=== PATIENT | male | born 1940 | race Caucasian/White ===

== ENCOUNTER 2017-01-23 05:22 | Day surgery (SDC) | payer MEDICARE, OTHER ==
[2017-01-22 12:28] LABS: BASOPHILS 0.8 % (0-2); EOSINOPHILS 3.7 % (0-7); HEMATOCRIT 38.8 % (42.0-54.0); HEMOGLOBIN 12.7 g/dL (13.5-17.5); IMMATURE GRANULOCYTES 0.4 % (0-5); LYMPHOCYTES 16.6 % (15-50); MCH 29.3 pg (26.0-34.0); MCHC 32.7 g/dL (31.0-37.0); MCV 89.6 fL (80.0-100.0); MEAN PLATELET VOLUME 9.6 fL (7.4-10.4); MONOCYTES 17.2 % (2-11); NEUTROPHILS 61.3 % (40-80); PLATELET COUNT 260 10x3/uL (130-400); RBC 4.33 10x6/uL (4.20-6.10); WBC 5.2 10x3/uL (4.8-10.8)
[2017-01-22 12:41] LABS: ANION GAP 13.5 mmol/L (8-16); CALCIUM 9.3 mg/dL (8.5-10.1); CARBON DIOXIDE 28.2 mmol/L (21.0-32.0); CREATININE - SERUM 1.6 mg/dL (0.6-1.3); POTASSIUM - SERUM 4.7 mmol/L (3.5-5.1)
[~2017-01-23 05:22] MED LIST: ACTOS45 MG PO; BAYER CHEWABLE81 MG PO; COZAAR100 MG PO; FARXIGA10 MG PO; GLYXAMBI 10 MG1 EACH PO; LANTUS INSULIN10 ML SQ; NORVASC2.5 MG PO; PRILOSEC20 MG PO; ZOCOR40 MG PO
[2017-01-23] MEDS ORDERED: FLOMAX0.4 MG PO (08:14)
[2017-01-23] MEDS ORDERED: HYDROCODONE-APA1 TAB PO (11:17)
[2017-01-23] MEDS ORDERED: CYCLOBENZAPRINE10 MG PO (11:18)
== END 2017-01-24 16:32 | disposition home or self-care (01) ==
LOC: D.OPS 05:22 → D.MS 18:22
PROVIDERS: Surgery
DX: K42.9 Umbilical hernia without obstruction or gangrene (principal); K43.9 Ventral hernia without obstruction or gangrene; I10 Essential (primary) hypertension; E11.9 Type 2 diabetes mellitus without complications; E78.00 Pure hypercholesterolemia, unspecified

== ENCOUNTER 2017-02-05 20:51 | Emergency (ER) | payer MEDICARE, OTHER ==
[2017-01-24 01:48] VITALS: BMI 30.9
[~2017-02-05 20:51] MED LIST changes: +CYCLOBENZAPRINE10 MG PO; +FLOMAX0.4 MG PO; +HYDROCODONE-APA1 TAB PO
[2017-02-05 22:34] LABS: APPEARANCE CLEAR (CLEAR); BILIRUBIN NEGATIVE (NEGATIVE); COLOR YELLOW (YELLOW); GLUCOSE 1000 mg/dL (NEGATIVE); KETONE NEGATIVE (NEGATIVE); LEUKOCYTE ESTERASE 1+ (NEGATIVE); NITRITE POSITIVE (NEGATIVE); PROTEIN NEGATIVE (NEGATIVE); UROBILINOGEN NORMAL (NORMAL)
[2017-02-05 22:35] LABS: WHITE CELLS - URINE 25-50 /hpf (0-5)
[2017-02-05 22:36] LABS: BACTERIA MODERATE /hpf (NONE SEEN)
== END 2017-02-05 23:04 | disposition home or self-care (01) ==
LOC: D.ER 20:51
PROVIDERS: Family Medicine
DX: N39.0 Urinary tract infection, site not specified (principal); R30.0 Dysuria; I10 Essential (primary) hypertension; E11.9 Type 2 diabetes mellitus without complications

== ENCOUNTER → 2017-10-17 14:32 | Outpatient (CLI) | payer MEDICARE, OTHER ==
[2017-01-24 01:48] VITALS: BMI 30.9
== END | disposition home or self-care (01) ==
LOC: D.US 14:32
DX: R09.89 Other specified symptoms and signs involving the circulatory and respiratory systems (principal)

== ENCOUNTER → 2018-12-23 09:36 | Outpatient (CLI) | payer MEDICARE, OTHER ==
[2017-01-24 01:48] VITALS: BMI 30.9
[~2018-12-23 09:36] MED LIST changes: +CARDURA4 MG PO; +LASIX20 MG PO; +SOLIQUA 100 UNIT3 ML SQ
== END | disposition home or self-care (01) ==
LOC: D.HCCARDIO 09:36
PROVIDERS: ATTEND Internal Medicine Cardiovascular Disease
DX: I25.10 Atherosclerotic heart disease of native coronary artery without angina pectoris (principal)

== ENCOUNTER → 2018-12-29 11:39 | Outpatient (CLI) | payer MEDICARE, BC ==
[~2018-12-29] VITALS: Ht 175.3 cm; Wt 90.9 kg
--- NOTE | ~2018-12-29 | HEMODYNAMI ---
PATIENT:GEOVANNY ROSALES MEDICAL RECORD: [id number] : 44 LOCATION:[facility] ADMISSION DATE: 12/29/18 Generatedon:12/29/201816:16 Patient name: GEOVANNY ROSALES Patient #: [id number] SSN: : 1940 Date of study: 12/29/2018 Page: Of Hemodynamic Procedure Report Patient Data Patient Demographics Procedure consent was obtained First Name: GEOVANNY Gender: Male Last Name: BOBBY : 1940 Middle Initial: A Age: 78 year(s) Patient #: [id number] Race: Additional ID: [id number] Contact details Address: [address] [place] [address] State: [place] City: [place] Zip code: [address] Past Medical History Allergies: No known allergies Admission Admission Data Admission Date: 12/29/2018 Admission Time: 11:39 Height (in.): 70 BSA: 2.13 (m2) Height (cm.): 177.8 BMI: 30.13 (kg/m2) Weight (lbs.): 210 Weight (kg.): 95.25 Lab Results Lab Result Date: 12/29/2018 Lab Result Time: 0:00 Biochemistry Name Units Result Min Max BUN mg/dl 36 --(----)-* 7 18 Creatinine mg/dl 1.9 --(----)-* 0.6 1.3 CBC Name Units Result Min Max Hematocrit % 36.2 *-(----)-- 42 54 Hemoglobin g/dl 11.7 *-(----)-- 13.5 17.5 Procedure Procedure Types Cath Procedure Diagnostic Procedure LHC Coronaries only Aortic Root Angiography Sedation Charges Moderate Sedation up to 15 minutes Procedure Description Procedure Date Procedure Date: 12/29/2018 Procedure Start Time: 15:58 Procedure End Time: 16:14 Procedure Staff Name Function Kamran Wells MD Performing Physician Sangeeta Zimmerman RT Monitor Adam Butt RT Scrthor Valladares RN Nurse Procedure Data Cath Procedure Fluoroscopy Diagnostic fluoroscopy Total fluoroscopy Time: 2 time: 2 min min Diagnostic fluoroscopy Total fluoroscopy dose: 715 dose: 715 mGy mGy Contrast Material Contrast Material Type Amount (ml) Isovue 300 87 Entry Location Entry Primary Successful Side Size Upsize Upsize Entry Closure Succes sful Closure Location (Fr) 1 (Fr) 2 (Fr) Remarks Device Remarks Femoral Right 5 Fr Exoseal artery Estimated blood loss: 10 ml Diagnostic catheters Device Type Used For End Catheter Placement MULTIPACK JL 4.0 5Fr Procedure catheter MULTIPACK 3DRC 5Fr Procedure catheter MULTIPACK Pigtail 5 Fr Procedure catheter Procedure Complications No complications Procedure Medications Medication Administration Route Dosage Oxygen etCO2 Nasal cannula 2 l/min Lidocaine 2% added to field 20 Heparin Flush Bag added to field 2 bags (1000units/500ml NS) 0.9% NaCl I.V. 100 ml/hr Versed I.V. 2 mg Fentanyl I.V. 100 mcg Versed I.V. 1 mg Fentanyl I.V. 50 mcg Versed I.V. 1 mg Fentanyl I.V. 50 mcg Hemodynamics Rest BSA: 2.13 (m2) HGB: 11.7 (g/dl) O2 Consumption: Estimated: 248.85 (ml/min) O2 Co nsumption indexed: Estimated:116.83 (ml/min/m) Heart Rate: 75 (bpm) Snapshots Pre Cath Intra NCS Post Cath Vital Signs Time Heart Resp SPO2 etCO2 NIBP Rhythm Pain Sedation Rate (ipm) (%) (mmHg) (mmHg) Status Level (bpm) 15:44:29 75 14 98 36.9 116/60(98) NSR 0 (11) 10(A) , No pain 15:48:42 68 16 95 33.1 104/54(75) NSR 0 (11) 10(A) , No pain 15:52:50 68 10 98 21.8 107/57(81) NSR 0 (11) 10(A) , No pain 15:57:00 70 20 98 33.9 84/57(74) NSR 0 (11) 9(A) , No pain 16:01:00 69 12 98 27.1 100/58(70) NSR 0 (11) 9(A) , No pain 16:05:05 74 12 98 35.4 101/59(78) NSR 0 (11) 9(A) , No pain 16:09:11 73 10 98 39.8 99/60(79) NSR 0 (11) 10(A) , No pain 16:13:19 72 13 95 0 91/53(65) NSR 0 (11) 10(A) , No pain Medications Time Medication Route Dose Verified Delivered Reason Notes Eff ectiveness by by 15:42:58 Oxygen etCO2 2 Kamran Buffie used for Nasal l/min Russell Valladares RN procedure cannula 15:43:06 Lidocaine 2% added 20ml Kamran Kamran for local to vial Russell Wells MD anesthetic field 15:43:12 Heparin Flush added 2 Kamran Kamran used for Bag to bags Russell Wells MD procedure (1000units/500ml field NS) 15:43:21 0.9% NaCl I.V. 100 Kamran Buffie Per ml/hr Russell Valladares RN physician 15:54:49 Versed I.V. 2 mg Kamran Buffie for Russell Valladares RN sedation 15:54:55 Fentanyl I.V. 100 Kamran Buffie for mcg Russell Valladares RN sedation 16:00:29 Versed I.V. 1 mg Kamran Buffie for Russell Valladares RN sedation 16:00:33 Fentanyl I.V. 50 Kamran Buffie for mcg Russell Valladares RN sedation 16:09:53 Versed I.V. 1 mg Kamran Buffie for Russell Valladares RN sedation 16:09:57 Fentanyl I.V. 50 Kamran Buffie for mcg Russell Valladares RN sedation Procedure Log Time Note 15:22:20 Signed procedure consent form obtained from patient. 15:22:21 Diagnostic Cath status Elective 15:22:23 Time tracking: Regular hours (M-F 7:00 - 5:00) 15:22:28 Plan of Care:Hemodynamics will remain stable., Cardiac rhythm will remain stable., Comfort level will be maintained., Respiratory function will remain adequate., Patient/ family verbilizes understanding of procedure., Procedure tolerated without complication., Recovers from procedure without complications.. 15:23:25 H&P Date Dictated: 12/17/2018 Within 30 days and on chart., H&P Addendum completed by physician on day of procedure. (MUST COMPLETE FOR ALL OUTPATIENTS). 15:23:32 Patient allergic to No known allergies 15:25:47 Patient Height : 70 inches 15:26:02 Patient Weight : 210 lbs 15:26:43 Adam Filomena RT(R) sent for patient. Start room use. 15:32:52 Patient received from Pre/Post Procedure Room to CCL 2 Alert and oriented. Tansferred to table in Supine position. 15:32:53 Warm blankets applied, and ariana hugger turned on for patient comfort. 15:32:54 Correct patient and procedure confirmed by team. 15:32:54 ECG and BP/O2 sat monitors applied to patient. 15:42:58 Oxygen 2 l/min etCO2 Nasal cannula was administered by Gilmar Valladares RN; used for procedure; 15:43:06 Lidocaine 2% 20ml vial added to field was administered by Kamran Wells MD; for local anesthetic; 15:43:12 Heparin Flush Bag (1000units/500ml NS) 2 bags added to field was administered by Kamran Wells MD; used for procedure; 15:43:21 0.9% NaCl 100 ml/hr I.V. was administered by Gilmar Valladares RN; Per physician; 15:43:24 Vital chart was started 15:44:29 Baseline sample Acquired. 15:44:32 Rhythm: sinus rhythm 15:44:33 Full Disclosure recording started 15:44:35 Pre-procedure instructions explained to patient. 15:44:35 Pre-op teaching completed and patient verbalized understanding. 15:44:36 Family in waiting room. 15:44:39 Patient NPO since Midnight. 15:44:41 Is patient on blood thinner?No 15:44:42 Patient diabetic? Yes. 15:44:43 If diabetic: On Metformin? No 15:44:46 Previous problem with sedation/anesthesia? No ? 15:44:47 Snore? No 15:44:48 Sleep apnea? No 15:44:48 Deviated septum? No 15:44:49 Opens mouth fully? No 15:44:50 Sticks out tongue? Yes 15:44:53 Dentures? No ? 15:44:55 Airway obstruction? No ? 15:44:59 Pre procedure: right dorsailis pedis pulse 2+ Normal; easily identifiable; not easily obliterated 15:45:04 Patient pain scale 0/10 ?. 15:45:08 IV patent on arrival in left wrist with 0.9% NaCl at [facility]. 15:47:14 Lab Result : BUN 36 mg/dl 15:47:14 Lab Result : Creatinine 1.9 mg/dl 15:47:14 Lab Result : Hemoglobin 11.7 g/dl 15:47:14 Lab Result : Hematocrit 36.2 % 15:47:17 Lab results completed and on chart. 15:47:20 Right groin area was prepped with chlora-prep and draped in sterile fashion 15:47:21 Alarms reviewed by R. N. 15:47:21 Sharps counted by scrub and verified by R.N. 15:47:24 Use device set Femoral Dx 15:47:25 ACIST Syringe (06606) opened to sterile field. 15:47:25 Bag Decanter (2002S) opened to sterile field. 15:47:26 ACIST Hand Control (08586) opened to sterile field. 15:47:27 ACIST Manifold (44294) opened to sterile field. 15:47:27 Tegaderm 4 x 4 (1626W) opened to sterile field. 15:47:28 Medline Cath Pack ([id number]) opened to sterile field. 15:47:28 DIAGNOSTIC WIRE .035 260cm J wire (151893) opened to sterile field. 15:47:29 DIAGNOSTIC Multipack 5Fr catheter set ([id number]) opened to sterile field. 15:47:30 SHEATH 5FR Fieldale (TCU511) opened to sterile field. 15:50:02 NO RADIAL DUE TO MULTIPLE WRIST SURGERIES 15:51:19 Zero performed for pressure channel P1 15:53:23 --------ALL STOP TIME OUT------ 15:53:23 Final Timeout: patient, procedure, and site verified with staff and physician. All members of the team are in agreement. 15:53:24 Right groin site verified by team. 15:53:29 Maximum allowable Isovue 300 dose 239ml. Physician notified. (300ml for normal creatinines. For patients with creatinine of 1.7 or higher multiply weight(kg) x 5 divided by creatinine.) 15:53:33 Fire Safety Assessment: A--An alcohol-based skin anteseptic being used preoperatively., C--Open oxygen or nitrous oxide is being used., D--An ESU, laser, or fiber-optic light is being used. 15:53:36 Physical assessment completed. ASA score P 2 - A patient with mild systemic disease as per Kamran Wells MD. 15:53:38 Sedation plan: IV Moderate Sedation Medication:Versed, Fentanyl 15:54:49 Versed 2 mg I.V. was administered by Gilmar Valladares RN; for sedation; 15:54:55 Fentanyl 100 mcg I.V. was administered by Gilmar Valladares RN; for sedation; 15:56:39 Procedure started. 15:58:07 Local anesthetic to right femoral artery with Lidocaine 2% by Kamran Wells MD.INITIAL ACCESS ONLY 15:59:03 A 5 Fr sheath was inserted into the Right Femoral artery 15:59:14 A MULTIPACK JL 4.0 5Fr catheter was advanced over the wire and used for Procedure. 16:00:29 Versed 1 mg I.V. was administered by Gilmar Valladares RN; for sedation; 16:00:33 Fentanyl 50 mcg I.V. was administered by Gilmar Valladares RN; for sedation; 16:03:14 LCA angiography performed. 16:03:49 Catheter exchanged over wire. 16:04:30 A MULTIPACK 3DRC 5Fr catheter was advanced over the wire and used for Procedure. 16:06:07 RCA angiography performed. 16:06:09 Catheter exchanged over wire. 16:09:07 Procedure type changed to Cath procedure, Diagnostic procedure, LHC, Coronaries only, Aortic Root Angiography, Sedation Charges, Moderate Sedation up to 15 minutes 16:09:15 A MULTIPACK Pigtail 5 Fr catheter was advanced over the wire and used for Procedure. 16:09:43 Aortic Root visualized 16:09:53 Versed 1 mg I.V. was administered by Gilmar Valladares RN; for sedation; 16:09:57 Fentanyl 50 mcg I.V. was administered by Gilmar Valladares RN; for sedation; 16:10:17 Catheter removed. 16:10:19 EXOSEAL 5Fr (EX500) opened to sterile field. 16:11:06 Sheath removed intact; hemostasis achieved with Exoseal to the Right Femoral artery. 16:11:36 Procedure ended.(Physican Out) 16:11:59 Fluoroscopy time 02.00 minutes. 16:12:04 Flurop Dose total: 715 16:12:04 Fluoroscopy dose: 715 mGy 16:12:09 Contrast amount:Isovue 300 87ml. 16:12:10 Sharps counted by scrub and verified by R.N. 16:12:13 Post-op/insertion site Right Femoral artery dressed using a 4 x 4 and Tegaderm. 16:12:16 Post-procedure physical assessment completed. ASA score P 2 - A patient with mild systemic disease as per Kamran Wells MD. 16:12:20 Post procedure rhythm: sinus rhythm 16:12:22 Estimated blood loss: 10 ml 16:12:24 Post procedure instruction explained to patient.Patient verbalizes understanding. 16:12:24 Patient needs reinforcement of post procedure teaching. 16:14:02 Procedure and supply charges have been captured, reviewed, submitted and are correct. 16:14:04 Procedure Complication : No complications 16:14:06 Vital chart was stopped 16:14:08 See physician's report for complete and final results. 16:14:10 Report given to Pre/Post Procedure Room. 16:14:13 Patient transfered to Pre/Post Procedure Room with Bed. 16:14:14 Procedure ended. 16:14:14 Full Disclosure recording stopped 16:14:19 End room use (Document Last) Device Usage Item Name Manufacture Quantity Catalog Hospital Part Current Minimal L ot# / Number Charge Number Stock Stock Serial# Code ACIST Acist 1 69577 628926 445616 810402 20 Syringe Medical (79918) Systems Inc Bag Microtek 1 035954 97369 195617 5 Decanter Medical Inc. () ACIST Hand Acist 1 01786 571889 738476 790783 5 Control Medical (60052) Systems Inc ACIST Acist 1 63184 011955 003076 885118 5 Manifold Medical (90229) Systems Inc Tegaderm 4 3M 1 1626W 715950 746034 751766 5 x 4 (1626W) Medline Medline 1 [id number] 049624 34218 469279 5 Cath Pack ([id number]) DIAGNOSTIC St Omar 1 951648 664531 048605 944517 30 WIRE .035 260cm J wire (983893) DIAGNOSTIC Cardinal 1 UE2750 900060 52112 019595 30 [employer] 5Fr catheter set (JQ5390) SHEATH 5FR Terumo 1 MNE896 054364 294883 382472 5 Fieldale (VOI410) MULTIPACK Cardinal 1 782769 5 JL 4.0 5Fr Health catheter MULTIPACK Cardinal 1 032959 5 3DRC 5Fr Health catheter MULTIPACK Cardinal 1 313328 5 Pigtail 5 Health Fr catheter EXOSEAL 5Fr Cardinal 1 EX500 803294 184575 130545 10 (EX500) Health Signature Audit [place] Stage Time Signature Unsigned Intra-Procedure 12/29/2018 Sangeeta Zimmerman 4:16:09 PM RT(R) Signatures Monitor : Sangeeta Zimmerman Signature : RT Date : Time : [address] [place] [address]
[2018-12-29 12:11] VITALS: BP 141/65; Ht 175.3 cm; Wt 90.9 kg
[2018-12-29 12:20] LABS: BASOPHILS 0.6 % (0-2); EOSINOPHILS 4.2 % (0-7); HEMATOCRIT 36.2 % (42.0-54.0); HEMOGLOBIN 11.7 g/dL (13.5-17.5); IMMATURE GRANULOCYTES 0.2 % (0-5); LYMPHOCYTES 22.1 % (15-50); MCH 30.8 pg (26.0-34.0); MCHC 32.3 g/dL (31.0-37.0); MCV 95.3 fL (80.0-100.0); MEAN PLATELET VOLUME 10.2 fL (7.4-10.4); MONOCYTES 13.3 % (2-11); NEUTROPHILS 59.6 % (40-80); RDW 13.9 % (11.5-14.5); WBC 5.4 10x3/uL (4.8-10.8)
[2018-12-29 12:23] LABS: PLATELET COUNT 199 10x3/uL (130-400)
[2018-12-29 12:27] LABS: ANION GAP 12.9 mmol/L (8-16); CALCIUM 8.6 mg/dL (8.5-10.1); CARBON DIOXIDE 27.5 mmol/L (21.0-32.0); CREATININE - SERUM 1.9 mg/dL (0.6-1.3); POTASSIUM - SERUM 4.4 mmol/L (3.5-5.1)
--- NOTE | 2018-12-29 16:33 | NUR ---
RECIEVED TO ROOM VIA STRETCHER FROM CORE MEASURES ABSTRACTOR WITH 5 FR EXOSEAL R/GROIN CDI NO BLEEDING OR HEMATOMA NOTED. PATIENT CONNECTED TO MONITOR FOR OBSERVATION WITH HR 73 BP 108/56 INSTRUCTED PATIENT TO KEEP HEAD FLAT ON PILLOW WITH RLE STRAIGHT
--- NOTE | 2018-12-29 16:45 | NUR ---
RESTING QUIETLY NO DISTRESS NOTED. 5 FR EXOSEAL R/GROIN IS CDI
--- NOTE | 2018-12-29 17:04 | NUR ---
TOLERATING SANDWICH AND SODA WITH NAUSEA DENIED. VSS AND R/GROIN IS CDI
--- NOTE | 2018-12-29 17:28 | NUR ---
5 FR EXOSEAL R/GROIN IS CDI WITH PAIN DENIED. HR 75 BP 126/65
--- NOTE | 2018-12-29 17:53 | NUR ---
5 FR EXOSEAL R/GROIN IS CDI WITH CHEST PAIN DENIED VSS. REPOSITIONED TO SITTING WITH HOB UP 30 FOR COMFORT. VERBAL AND WRITTEN DISCHARGE GONE OVER WITH PATIENT AND
--- NOTE | 2018-12-29 18:27 | NUR ---
PIV REMOVED WITH DRESSING APPLIED. PATIENT UP TO GET DRESSED FOR DISCHARGE HOME 5 FR EXOSEAL R/GROIN IS CDI AND CHEST PAIN IS DENIED. PATIENT LEFT VIA WC TO PARKING FOR TRANSPORT HOME NO DISTRESS
== END | disposition home or self-care (01) ==
LOC: D.CATH 11:39
PROVIDERS: ATTEND Internal Medicine Cardiovascular Disease
DX: I70.0 Atherosclerosis of aorta (principal); I25.119 Atherosclerotic heart disease of native coronary artery with unspecified angina pectoris; T82.855A Stenosis of coronary artery stent, initial encounter; I35.0 Nonrheumatic aortic (valve) stenosis; Z01.812 Encounter for preprocedural laboratory examination

== ENCOUNTER 2019-01-21 07:43 | Inpatient (IN) | payer MEDICARE, BC ==
[~2019-01-21] VITALS: Ht 175.3 cm; Wt 100.0 kg
[2019-01-21] MEDS ORDERED: CENTRUM MEN'S1 EACH PO (08:15)
[2019-01-21] MEDS ORDERED: EZFE 200200 MG PO (08:16)
[2019-01-21 10:49] LABS: BASOPHILS 0.2 % (0-2); EOSINOPHILS 4.8 % (0-7); HEMATOCRIT 35.1 % (42.0-54.0); HEMOGLOBIN 11.5 g/dL (13.5-17.5); IMMATURE GRANULOCYTES 0.2 % (0-5); LYMPHOCYTES 18.4 % (15-50); MCH 30.9 pg (26.0-34.0); MCHC 32.8 g/dL (31.0-37.0); MCV 94.4 fL (80.0-100.0); MEAN PLATELET VOLUME 9.6 fL (7.4-10.4); MONOCYTES 15.5 % (2-11); NEUTROPHILS 60.9 % (40-80); PLATELET COUNT 177 10x3/uL (130-400); RBC 3.72 10x6/uL (4.20-6.10); RDW 14.1 % (11.5-14.5); WBC 4.8 10x3/uL (4.8-10.8)
[2019-01-21 11:02] LABS: APTT 28.8 SECONDS (22.8-39.4); INR 1.03 (0.85-1.17)
[2019-01-21 11:09] LABS: APPEARANCE CLEAR (CLEAR); BACTERIA FEW /hpf (NONE SEEN); BILIRUBIN NEGATIVE (NEGATIVE); COLOR YELLOW (YELLOW); EPITHELIAL CELLS OCC /hpf (0-5); GLUCOSE NEGATIVE (NEGATIVE); KETONE NEGATIVE (NEGATIVE); NITRITE NEGATIVE (NEGATIVE); PROTEIN NEGATIVE (NEGATIVE); RED CELLS - URINE 0-5 /hpf (0-5); UROBILINOGEN NORMAL (NORMAL)
[2019-01-21 11:10] LABS: MUCUS <1+ /lpf (NONE SEEN)
[2019-01-21 11:15] LABS: ALBUMIN 3.6 g/dL (3.4-5.0); ANION GAP 11.6 mmol/L (8-16); BILIRUBIN - TOTAL 0.38 mg/dL (0.2-1.3); CALCIUM 8.8 mg/dL (8.5-10.1); CARBON DIOXIDE 28.6 mmol/L (21.0-32.0); CREATININE - SERUM 1.9 mg/dL (0.6-1.3); PHOSPHOROUS 3.2 mg/dL (2.5-4.9); POTASSIUM - SERUM 4.2 mmol/L (3.5-5.1); PROTEIN - SERUM 7.4 g/dL (6.4-8.2); T4 THYROXIN - FREE 1.1 ng/dL (0.76-1.46); THYROID STIMULATING HORMONE 2.16 uIU/mL (0.36-3.74)
[2019-01-27] VITALS (38 sets, daily range): BP systolic 71–141; BP diastolic 34–93; BMI 31.6
--- NOTE | 2019-01-27 15:00 | NUR ---
ARRIVED TO UNIT AT 1435 VIA BED. ON VENT A/C TV 550, R 14, FIO2 100%, PEEP 5. 8.0 ETT, 25 AT THE LIP. SEDATED. WRIST RESTRAINTS APPLIED ON ARRIVAL PER ORDERS. CONNECTED TO ICU MONITOR. R-IJ WITH AMIO AT 33.3ML/HR, DIANA AT 0.9MCG/KG/MIN, PLASMOLYTE AT 100ML/HR. MIDSTERNAL INCISION DRESSING CDI. SUBSTERNAL INCISION WITH 3 CT, 1 DUY DRAIN. HUBBARD IN PLACE. R-LEG HARVEST WRAPPED IN COBAN FROM GROIN TO ANKLE. L-RADIAL BRANDON IN PLACE. PEDAL PULSES PALPABLE. SWAN MORE SECURED IN PLACE. WILL CONTINUE TO MONITOR.
--- NOTE | 2019-01-27 15:30 | NUR ---
200ML FLUID BOLUS GIVEN SD DR. ROGERS'S ORDERS.
--- NOTE | 2019-01-27 15:43 | NUR ---
1 UNIT OF PRBC'S INITIATED AT THIS TIME PER DR ROGERS.
[2019-01-27 16:18] LABS: INR 1.45 (0.85-1.17); PROTIME 17.1 SECONDS (11.6-15.0)
[2019-01-27 16:21] LABS: BASOPHILS 0.2 % (0-2); EOSINOPHILS 0.7 % (0-7); HEMATOCRIT 27.6 % (42.0-54.0); HEMOGLOBIN 9.1 g/dL (13.5-17.5); IMMATURE GRANULOCYTES 0.4 % (0-5); LYMPHOCYTES 6.5 % (15-50); MCH 30.7 pg (26.0-34.0); MCV 93.2 fL (80.0-100.0); MEAN PLATELET VOLUME 10.1 fL (7.4-10.4); MONOCYTES 11.8 % (2-11); NEUTROPHILS 80.4 % (40-80); RBC 2.96 10x6/uL (4.20-6.10); WBC 10.9 10x3/uL (4.8-10.8)
[2019-01-27 16:22] LABS: PLATELET COUNT 105 10x3/uL (130-400)
--- NOTE | 2019-01-27 16:40 | NUR ---
UNIT OF PRBC'S FINISHED INFUSING.
--- NOTE | 2019-01-27 17:06 | NUR ---
1 AMP OF BICARB GIVEN PER ODERS.
--- NOTE | 2019-01-27 18:00 | NUR ---
DIANA DECREASED TO 0.9MCG/KG/MIN PER ORDERS.
--- NOTE | 2019-01-27 18:30 | NUR ---
AMIODARONE DECREASED TO 0.5MG/MIN PER ORDERS.
--- NOTE | 2019-01-27 19:15 | NUR ---
REPORTR RECIEVED . CARE ASSUMED. PT IS AWAKE AND FOLLOWING COMMANDS. VENT PER ETT. NO SEDATION. R IJ CORDIS WITH SWAN MORE. NEOSYNEPHRINE BEING TITRATED TO MAINTAIN SBP 90-140. SEE FLOWSHEET FOR INFUSIONS. NSR ON CM. ASSESSMENT COMPLETED. PT IS COOL TO TOUCH. WARM BLANKET APPLIED.
--- NOTE | 2019-01-27 19:30 | NUR ---
DR ROGERS CALLED AND UPDATED ON PT CONDITION AND ABG RESULTS. NEW ORDERS RECIEVED FOR AN AMP OF BICARB IV NOW, 100 ML NS BOLUS AND CALL HIM RESULTS OF REPEAT ABG IN 30 MINUTES.
--- NOTE | 2019-01-27 20:05 | NUR ---
DR ROGERS CAYED WITH RESULTS OF ABG. ORDER RECIEVED TO GIVE AN AMP OF BICARB AND CALL RESULTS OF REPEAT ABG IN 30 MINUTES.
--- NOTE | 2019-01-27 20:35 | NUR ---
DR ROGERS CALLED WITH RESULT OF ABG. ORDER RECIEVED TO EXTUBATE NOW AND LEAVE SWAN IN UNTIL AM. RESPIRATORY THERAPIST NOTIFIED.
--- NOTE | 2019-01-27 20:40 | NUR ---
EXTUBATED BY RT JAYY. PT IS COUGHING WHEN ASKED AND FOLLOWING COMMANDS. VSS.
--- NOTE | 2019-01-27 22:00 | NUR ---
PT CONTINUING TO BECOME MORE ALERT. O2 NC 5L. CONTINUING TO TITRATE DIANA.
[2019-01-28] VITALS (96 sets, daily range): BP systolic 90–145; BP diastolic 28–62; Ht 175.3 cm; Wt 100.0 kg
--- NOTE | 2019-01-28 | NUR ---
TOLERATING ICE CHIPS AND SIPS OF WATER. NO DIFFICULTY SWALLOWING. GIVING PM ORAL MEDS. CONTINUES TO COUGH AND DEEP BREATH ON REQUEST. EDUCATED ON USING HEART PILLOW TO HELP EASE THE DISCOMFORT WHEN MOVING AND DEEP BREATHING.
--- NOTE | 2019-01-28 03:30 | NUR ---
NO CHANEGS IN ASSSESSMENT.
[2019-01-28 06:05] LABS: HEMOGLOBIN 9.5 g/dL (13.5-17.5); MCH 30.4 pg (26.0-34.0); MCHC 32.8 g/dL (31.0-37.0); MCV 92.9 fL (80.0-100.0); MEAN PLATELET VOLUME 10.3 fL (7.4-10.4); RBC 3.12 10x6/uL (4.20-6.10); RDW 14.8 % (11.5-14.5); WBC 11.1 10x3/uL (4.8-10.8)
[2019-01-28 06:30] LABS: INR 1.09 (0.85-1.17); PROTIME 13.6 SECONDS (11.6-15.0)
[2019-01-28 06:31] LABS: ALBUMIN 2.4 g/dL (3.4-5.0); ANION GAP 12.7 mmol/L (8-16); BILIRUBIN - TOTAL 0.23 mg/dL (0.2-1.3); CALCIUM 7.3 mg/dL (8.5-10.1); CARBON DIOXIDE 27.1 mmol/L (21.0-32.0); CREATININE - SERUM 2.2 mg/dL (0.6-1.3); MAGNESIUM - SERUM 2.5 mg/dL (1.8-2.4); POTASSIUM - SERUM 4.8 mmol/L (3.5-5.1); PROTEIN - SERUM 4.9 g/dL (6.4-8.2)
--- NOTE | 2019-01-28 07:00 | NUR ---
SHIFT REPORT RECEIVED. AA&O. RATES PAIN 5/10 AT INCISION SITE. ON 3L O2 VIA NC. ON CLEAR LIQUIDS. RIJ WITH PLASMOLYTE AT 100ML/HR, DIANA AT 0.7MCG/KG/MIN, AMIODARONE AT 16.7ML/HR, AND ZINACEF AT 11.4ML/HR. LEFT RADIAL BRANDON SECURED. MIDSTERNAL DRESSING CDI. CHEST TUBES X 3 TO 20CM H2O SUCTION WITH NO AIR LEAK NOTED. L-DUY DRAIN IN PLACE WITH BLOODY DRAINAGE NOTED. R-LEG HARVEST SITES WRAPPED IN COBAN DRESSING FROM GROIN TO ANKLE. TEDS AND SCD IN PLACE ON LEFT LEG. SHIFT ASSESSMENT COMPLETED. CALL LIGHT IN REACH. SIDE RAILS UP X 2. BED LOW POSITION. WILL CONTINUE TO MONITOR.
--- NOTE | 2019-01-28 07:32 | OP ---
PATIENT NAME: GEOVANNY ROSALES MEDICAL RECORD: [id number] :42 LOCATION:[facility] ADMISSION DATE:01/27/19 SURGEON: VICK ROGERS MD DATE OF OPERATION: 01/27/2019 SURGEON: Vick Rogers MD HANDBAG STITCHER: Perfecto Travis OPERATIONS PERFORMED: 1. Aortic valve replacement (23-mm pericardial valve). 2. Coronary artery bypass graft times 3 (left internal mammary to LAD, reverse saphenous vein graft from aorta to inferior branch of first diagonal, aorta to acute marginal). 3. Endoscopic saphenous vein harvest. PREOPERATIVE DIAGNOSES: Aortic stenosis, coronary artery disease. POSTOPERATIVE DIAGNOSES: Aortic stenosis, coronary artery disease. ANESTHESIA: General endotracheal anesthesia. ESTIMATED BLOOD LOSS: Total cardiopulmonary bypass with Cell Saver retransfusion. COMPLICATIONS: None. SPECIMENS: Aortic valve leaflets. CONDITION: Stable. DISPOSITION: CV ICU. OPERATIVE FINDINGS: 1. Transesophageal echocardiography was not used due to previous history of dysphagia and apparent previous history of esophageal erosions. The patient also reported a history of hiatal hernia. 2. Relatively large-caliber greater saphenous vein. The portion from the upper thigh was not used. 3. Good quality left internal mammary artery. The LAD was 2.0 mm with severe disease. 4. The bifurcating diagonal inferior branch was 1.5 mm with severe disease. There were no distal obtuse marginal targets of any significant size seen. 5. The right coronary was calcified throughout and the acute marginal crossed the inferior wall of the right ventricle to the distal septum and it was a 1.5 mm vessel. 6. The aortic valve was calcified including the leaflets and the annulus, but the valve seated well with no evidence of perivalvular leak. 7. Normal-appearing heart with good contractility. OPERATIVE INDICATIONS: Aortic stenosis and coronary artery disease. OPERATIVE SUMMARY IN DETAIL: The patient was brought to the operating suite. General anesthesia was obtained. The patient was prepped and draped. The greater saphenous vein was harvested endoscopically from the right lower OPERATIVE REPORT [id number] GEOVANNY ROSALES extremity. Side branches were divided with electrocautery. The vessel ligated was proximally and distally, and removed. Side branches were clipped. Some side branches were tied. Later, the leg was irrigated, closed in 2 layers, and wrapped with an elastic wrap. Median sternotomy incision was made. Subcutaneous tissue was divided with electrocautery. Sternum was divided with a saw. Left hemisternum was elevated. Left pleural cavity was entered. Left internal mammary vein was taken down as a pedicle graft. Sternal retractor was placed. Pericardium was opened. Heparin was given. Aorta was cannulated. Dual-stage venous cannula was inserted. The internal mammary was clipped distally and made ready for anastomosis. The patient was placed on cardiopulmonary bypass after activated clotting time was appropriately elevated. Retrograde cardioplegia cannula was inserted. The sites for distal anastomoses were selected. The left ventricular vent was inserted through the right superior pulmonary vein. Antegrade cardioplegia cannula was inserted. The patient was cooled. Cross-clamp was placed. Cardioplegia was given antegrade and retrograde and this was repeated at 15- to 20-minute intervals during the cross-clamp time. Distal anastomoses were performed in standard technique. The transverse aortotomy was performed. Direct cardioplegia was given into the left and the right had significant ostial calcification, too small for even a 4-mm ostial cannula. The leaflets were removed and the calcified plaque was debrided from the annulus. Thorough irrigation was undertaken. The valve sized to 23 mm. Pledgeted valve sutures were placed from ventricular to aortic side and then placed through the sewing ring. The valve was carefully lowered in place, sutured individually, and tied. I inspected the valve and it revealed no subvalvular obstruction and no evidence of leak at the annulus. The aortotomy was closed. Two proximal anastomoses were performed. The patient was in steep Trendelenburg position with de-airing of the left ventricular apex. Then, cross-clamp was removed. Aortic root was de-aired. Proximal anastomoses were tied down. Grafts were de-aired. Flow was restored. Proximal and distal anastomotic sites were inspected for bleeding. The patient was in a spontaneous sinus rhythm, fully rewarmed, and weaned from cardiopulmonary bypass after removing the left ventricular vent and the retrograde cardioplegia line. With the patient stable, he was decannulated. The aortic cannulation site was oversewn with a pledgeted suture. Thorough irrigation was undertaken and grafts lay appropriately. Protamine was given. Drains were placed in the mediastinum and both pleural cavities. Atrial and ventricular pacing wires were placed. Pericardial fat was loosely reapproximated. Left chest was evacuated and irrigated. Internal mammary harvest site was inspected for bleeding. Sternum was closed. Fascia was closed. Subcutaneous tissue was closed. Skin was closed. Dermabond was placed. The needle and sponge counts were reported as correct and the patient was taken to the ICU in stable condition. TRANSINT:[id number] Voice Confirmation ID: [id number] DOCUMENT ID: [id number] OPERATIVE REPORT [id number] GEOVANNY ROSALES, VICK Izaguirre MD at 0732 CC: JACKY BRAGG M.D. and RACHEL RAMIREZ [phone] DICTATION DATE: 01/27/19 1505 [employer] ASSEMBLER: 01/27/192000 ADM IN [address] [place] [address]
--- NOTE | 2019-01-28 07:35 | NUR ---
SHUKRI AGUERO PULLED PER DR. ROGERS. PT TOLERATED WELL.
--- NOTE | 2019-01-28 07:40 | NUR ---
DIANA DECREASED TO 0.6MCG/KG/MIN (17.5ML/HR). PT PULLS BETWEEN 500-750 ON I.S. COUGH IS WEAK. WILL CONTINUE TO WORK ON I.S. AND COUGH/DEEP BREATHING.
--- NOTE | 2019-01-28 08:39 | NUR ---
PO MEDS GIVEN WITH ICE WATER. NO SWOLLOWING DIFFICULTY NOTED. AMIODARONE OFF PER ORDERS. SIGNIFICANT OTHER AT BEDSIDE. NO FURTHER NEEDS AT THIS TIME. WILL CONTINUE TO MONITOR.
--- NOTE | 2019-01-28 09:30 | NUR ---
RATES PAIN 8/10 INCISIONAL. MORPHINE 2MG IV GIVEN PER ORDERS. DIANA DECREASED TO 0.5MCG/KG/MIN. WILL CONTINUE TO MONITOR AND DECREASE DIANA TOLERATED.
--- NOTE | 2019-01-28 10:42 | NUR ---
DANGLED ON SIDE OF FOR 10 MINUTES. TOLERATED WELL. DIANA DECREASED TO 0.4MCG/KG/MIN. PERCOCET 10 GIVEN AT THIS TIME FOR PAIN PER ORDERS. WILL CONTINUE TO MONITOR.
--- NOTE | 2019-01-28 11:56 | NUR ---
BP DROPPED INTO 80S. DIANA INCREASED PER PROTOCOL. CURRENTLY AT 0.9MCG/KG/MIN.
--- NOTE | 2019-01-28 14:27 | NUR ---
1200 ASSUMED PT CARE, PT DENIES PAIN AND ALL NEEDS, R IJ CVL WITH PLASMALYTE, DIANA AND ZINACEF INFUSING, L RADIAL A LINE, MIDSTERNAL AND SUBSTERNAL DRESSINGS WITH CT X3 2 Y'D TOGETHER, L SUBSTERNAL DUY DRAIN, TPM WIRES COILED, CRITICORE DRAINING YELLOW URINE, RLE COBAN DRESSING CDI, APPROX 1400 MORPHINE GIVEN BEFORE CTS REMOVED BY DR ROGERS, PT TOLERATED WELL, PER DR ROGERS REMOVE BRANDON WHEN DIANA WEANED TO 0.3 MCG.
--- NOTE | 2019-01-28 15:08 | NUR ---
A LINE AND LAC PIV DCD PER PROTOCOL TIPS INTACT NO SIGNS OF BLEEDING, RLE COBAN REMOVED, SCDS AND TEDS APPLIED WITH GAUZE OVER GLUE SITES TO PREVENT RUBBING OF TEDS
[2019-01-28 15:51] LABS: CHOL - HDL RATIO 1.8 ratio (2.3-4.9); LDL-HDL RATIO 0.7 ratio (1.5-3.5)
--- NOTE | 2019-01-28 16:17 | NUR ---
BED BATH AND LINEN CHANGE, DANGLED ON SIDE OF BED
--- NOTE | 2019-01-28 17:25 | MORECARE ---
CASE MANAGEMENT DISCHARGE SUMMARY PATIENT: GEOVANNY ROSALES UNIT: [id number] ADM DATE: 01/27/19 AGE: 78 : 44 SEX: M ROOM/BED: D[facility] AUTHOR: SHAE,DOC PHYSICIAN: REFERRING PHYSICIAN: ROSMERY ROGERS MD DATE OF SERVICE: 01/28/19 Discharge Plan Patient Name: GEOVANNY ROSALES Facility: [facility]:[place] : 1940 Planned Disposition: Home Anticipated Discharge Date: Discharge Date: Expected LOS: Initial Reviewer: [email or web address] Initial Review Date: 01/27/2019 Generated: 01/28/19 6:25 pm Comments DCP- Discharge Planning Updated by [email or web address]: Laney Banuelos on 01/28/19 4:[address] Patient Name: GEOVANNY ROSALES Admission Status: Urgent Accout number: [id number] Admission Date: 01-27-2019 : 1940 Admission Diagnosis: Attending: ROSMERY ROGERS Current LOS: 1 Anticipated DC Date: Planned Disposition: Home Primary Insurance: MEDICARE A & B Discharge Planning Comments: CM met with patient at bedside after explaining CM role and obtaining verbal consent. Patient lives at home with his friend Ann and plans to return there upon discharge. Patient feels this would be a safe discharge. CM discussed availability / needs of home health and medical equipment. Patient denies any discharge needs at this time. Patient states he will have his friend drive him home upon discharge. CM will continue to follow and assist as needed with discharge planning / needs. Bilingual Office Assistant: Laney Banuelos DCPIA - Discharge Planning Initial Assessment Updated by [email or web address]: Laney Banuelos on 01/28/19 5:19 pm * Is the patient Alert and Oriented? Yes * How many steps to enter\exit or inside your home? * PCP ASHLEY * Pharmacy [facility] * Preadmission Environment Home with Family * ADLs Independent * Other Equipment WALKER, CANE, HOME 02-PRN, SHOWER CHAIR * List name and contact numbers for known caregivers / representatives who currently or will assist patient after discharge: DARYL ROSALES - SON- [phone] ANN RONIT OTHER- [phone] * Verbal permission to speak to the caregivers and representatives has been obtained from the patient. N/A * Community resources currently utilized None * Additional services required to return to the preadmission environment? No * Can the patient safely return to the preadmission environment? Yes * Has this patient been hospitalized within the prior 30 days at any hospital? No Patient Name: GEOVANNY ROSLAES Page [phone] at 1725 All edits/amendments must be made on the electronic document DICTATION DATE: 01/28/191724 PARTS DELIVERY DRIVER: CAROL 01/28/191724 RPT#: [id number] DC DATE: STATUS: ADM IN [facility] [address] [place] [address] END OF REPORT
--- NOTE | 2019-01-28 17:29 | NUR ---
NOTIFIED DR ROGERS OF NEW ORDERS FOR LIPITOR PER CARDIOLOGY, ORDERS TO BEGIN FRIDAY NOT TOMORROW
--- NOTE | 2019-01-28 18:15 | NUR ---
PT REPOSITIONED, VSS, DENIES PAIN, CONTINUES ON DIANA AT 0.3, WILL CONTINUE TO MONITOR
--- NOTE | 2019-01-28 19:00 | NUR ---
REPORT RECEIVED AND ASSESSMENT COMPLETED. SEE FLOWSHEET FOR FULL DETAILS. VSS. WILL MONITOR.
--- NOTE | 2019-01-28 21:24 | NUR ---
2100 MEDS GIVEN VSS WILL MONITOR
--- NOTE | 2019-01-28 23:22 | NUR ---
REASSESSMENT COMPLETED. SEE FLOWSHEET FOR FULL DETAILS.
[2019-01-29] VITALS (55 sets, daily range): BP systolic 86–122; BP diastolic 41–82
--- NOTE | 2019-01-29 03:07 | NUR ---
REASSESSMENT COMPLETED. SEE FLOWSHEET FOR FULL DETAILS. VITAL SIGNS REMAIN STABLE PT DENIES PAIN. WILL CONTINUE TO MONITOR
--- NOTE | 2019-01-29 04:27 | NUR ---
HIBICLENS BATH GIVEN LINEN CHANGE COMPLETED.
[2019-01-29 05:48] LABS: HEMATOCRIT 27.5 % (42.0-54.0); HEMOGLOBIN 9.1 g/dL (13.5-17.5); MCH 30.8 pg (26.0-34.0); MCHC 33.1 g/dL (31.0-37.0); MCV 93.2 fL (80.0-100.0); MEAN PLATELET VOLUME 10.2 fL (7.4-10.4); RBC 2.95 10x6/uL (4.20-6.10); RDW 14.9 % (11.5-14.5); WBC 11.1 10x3/uL (4.8-10.8)
[2019-01-29 06:02] LABS: ALBUMIN 2.4 g/dL (3.4-5.0); BILIRUBIN - DIRECT 0.11 mg/dL (0.00-0.30); BILIRUBIN - INDIRECT 0.23 mg/dL (0.00-1.00); BILIRUBIN - TOTAL 0.34 mg/dL (0.2-1.3); CALCIUM 7.6 mg/dL (8.5-10.1); CARBON DIOXIDE 25.7 mmol/L (21.0-32.0); LDL-HDL RATIO 0.9 ratio (1.5-3.5); POTASSIUM - SERUM 4.7 mmol/L (3.5-5.1); PROTEIN - SERUM 5.5 g/dL (6.4-8.2)
[2019-01-29 06:04] LABS: CREATININE - SERUM 2.9 mg/dL (0.6-1.3)
--- NOTE | 2019-01-29 08:34 | NUR ---
AWAITING ACTJESSICA FROM PHARMACY, SPOKE WITH SHAVON
--- NOTE | 2019-01-29 10:24 | NUR ---
0700 PT RECIEVED UP IN CHAIR ALERT AN DORIENTED VSS DENIES PAIN R IJ CVL DRESSING CDI WITH DIANA 0.3MCG, PLASMALYTE 100ML/HR, ZINACEF 11.4ML/HR, MIDSTERNAL AND SUBSTERNAL DRESSINGS CDI WITH DUY DRAIN COMPRESSED, TPM WIRES COILED, RLE HARVEST SITES OPEN TO AIR WITH GLUE CDI, HUBBARD DRAINING YELLOW URINE 0900 ATE 50% BREAKFAST AND TOOK AM MEDS WITHOUT DIFFICULTY
--- NOTE | 2019-01-29 13:12 | NUR ---
1030 DIANA TITRATED OFF 1200 ATE 25% LUNCH DRANK 100% ENSURE
--- NOTE | 2019-01-29 17:24 | NUR ---
1500 PT AMBULATED WITH THERAPY, DENIES ALL NEEDS 1700 DINNER TRAY SERVED, TITRATING INSULIN PER PROTOCOL
--- NOTE | 2019-01-29 19:00 | NUR ---
REPORT RECIEVED, SHIFT ASSESSMENT COMPLETE, PLEASE SEE FLOW SHEETS FOR DETAILS. DENIES PAIN/NEEDS ATT. VSS, BED LOW AND LOCKED, CALL LIGHT IN REACH. PULLED 800 ON I.S.. WILL CONTINUE PLAN OF CARE.
--- NOTE | 2019-01-29 20:52 | NUR ---
TOLERATED PO WELL. DENIES PAIN/NEEDS. HEMODYNAMICALLY STABLE. BED LOW AND LOCKED, CALL LIGHT IN REACH. WILL CONTINUE PLAN OF CARE.
--- NOTE | 2019-01-29 23:00 | NUR ---
REASSESSMENT COMPLETE, PLEASE SEE FLOW SHEETS FOR DETAILS. NO ACUTE CHANGES TO NOTE. VSS, BED LOW AND LOCKED, CALL LIGHT IN REACH. WILL CONTINUE PLAN OF CARE.
[2019-01-30] VITALS (24 sets, daily range): BP systolic 90–121; BP diastolic 45–61
--- NOTE | 2019-01-30 01:00 | NUR ---
LAYING QUIETLY IN BED. DENIES PAIN/NEEDS. VSS, BED LOW AND LOCKED, CALL LIGHT IN REACH. WILL CONTINUE PLAN OF CARE.
--- NOTE | 2019-01-30 03:00 | NUR ---
REASSESSMENT COMPLETE, PLEASE SEE FLOW SHEETS FOR DETAILS. NO ACUTE CHANGES TO NOTE. DENIES PAIN/NEEDS. VSS, BED LOW AN DLOCKED, CALL LIGHT IN REACH. WILL CONTINUE PLAN OF CARE.
--- NOTE | 2019-01-30 04:31 | NUR ---
FULL BED BATH AND LINEN CHANGE PROVIDED. UP TO CHAIR. CHANGED CVL DRESSING USING STERILE TECHNIQUE. HUBBARD CARE PROVIDED. WATER PROVIDED. VSS. CHAIR LOCKED, FEET ELEVATED. CALL LIGHT IN REACH. WILL CONTINUE PLAN OF CARE.
[2019-01-30 05:41] LABS: HEMOGLOBIN 8.6 g/dL (13.5-17.5); MCH 30.4 pg (26.0-34.0); MCHC 33.1 g/dL (31.0-37.0); MCV 91.9 fL (80.0-100.0); MEAN PLATELET VOLUME 10.4 fL (7.4-10.4); RBC 2.83 10x6/uL (4.20-6.10); RDW 14.7 % (11.5-14.5); WBC 9.7 10x3/uL (4.8-10.8)
[2019-01-30 06:02] LABS: ALBUMIN 2.2 g/dL (3.4-5.0); ANION GAP 16.8 mmol/L (8-16); BILIRUBIN - TOTAL 0.58 mg/dL (0.2-1.3); CALCIUM 7.9 mg/dL (8.5-10.1); CARBON DIOXIDE 23.2 mmol/L (21.0-32.0); CREATININE - SERUM 2.7 mg/dL (0.6-1.3); PROTEIN - SERUM 5.8 g/dL (6.4-8.2)
--- NOTE | 2019-01-30 06:23 | NUR ---
RESTING IN CHAIR. NEEDS PROVIDED FOR. VSS. CALL LIGHT IN REACH. CONTINUING PLAN OF CARE.
--- NOTE | 2019-01-30 07:54 | NUR ---
UP IN CHAIR AT BEDSIDE. AWAKES EASILY TO VERBAL STIMULI SKIN WARM AND DRY. CHEST DRESSINGS DRY AND INTACT. DUY DRAINAGE INTACT WITH BULB COMPRESSED SERSANG DRAINAGE IN BULB. RIJ INFUSING WITH PLAMALYTE AT 100 ML HOUR. HUBBARD CATH PATENT DRAINING CLEAR KEVON URINE. MONITOR SR WITH ST ELEVATION.
--- NOTE | 2019-01-30 09:00 | NUR ---
AMBULATED IN [place] WITH PHYSICAL THERAPY WITH PORTABLE OXYGEN. SOME SHORTNESS OF BREATH WHILE WALKING DID HAVE TO STOP AND REST.
--- NOTE | 2019-01-30 09:25 | NUR ---
DR. ROGERS NOTIFIED OF ATRIAL FIB. ORDERS FOR MAGNESIUM LEVEL ON AM LABL NOTIFIED IF RATE GREATER THAN 120 FOR 10 MIN.
--- NOTE | 2019-01-30 09:36 | NUR ---
DR. ROGERS HERE. TALKED WITH PATIENT
--- NOTE | 2019-01-30 10:50 | NUR ---
DR. ROGERS NOTIFIED OF ACCUCHECK OF 316. ORDERS RECEIVED TO RESTART IV INSULIN PROTOCAL. AND NOTIFIY DR. PERRY. DR. PERRY NOTIFIED. ORDERED MED SLING SCALE HUMALOG INSULIN WHEN SUGAR BELOW 200.
--- NOTE | 2019-01-30 11:12 | NUR ---
INSULIN GTT RESTARTED 10 UNITS BOLUS GIVEN. 4 UNITS AN HOUR STARTED
--- NOTE | 2019-01-30 12:00 | NUR ---
RETURNED TO BED. STANDING AND AMBULATING WITH UNSTEADY GAIT.
--- NOTE | 2019-01-30 12:26 | NUR ---
ACCUCHECK 238 4 UNITS BOLUS GIVEN AND 2 UNITS OVER NEXT HOUR INFUSING
--- NOTE | 2019-01-30 14:30 | NUR ---
INSULIN GTT OFF. RIJ LINE FLUSHED WITH NS . PATIENT RESTING IN BED WITH HEAD OF BED ELEVATED 30 DEGREES. NO DISTRESS
--- NOTE | 2019-01-30 15:48 | NUR ---
PATIENT CONVERTED TO SINUS RHYTHM. RESTING IN BED NO DISTRESS
--- NOTE | 2019-01-30 16:30 | NUR ---
SUPER TRAY SERVED. REPOSITIONED INBED. HEAD OF BED ELEVATED 45 DEGREES.
--- NOTE | 2019-01-30 17:04 | NUR ---
SUBSTERNAL DRESSING CHANGED INCISIONS CLEAN WITH BETADINE. NEW BIO PATCHES REPLACED AROUND PACEMAKER WIRES X 4. NO REDNESS OR DRAINAGE AT SITE. 4X4 APPLIED. TEGRADERM APPLIED OVER.. PATIENT TOLERATED WELL. DUY DRAINED EMPTIED OF 25 ML OF SERSANG DRAINAGE. BULB COMPRESSED.
--- NOTE | 2019-01-30 18:32 | NUR ---
RESTING IN BED WATCHING TV. NO DISTRESS.
--- NOTE | 2019-01-30 19:00 | NUR ---
REPORT RECIEVED, SHIFT ASSESSMENT COMPLETE, PLEASE SEE FLOW SHEETS FOR DETAILS. DENIES PAIN/NEEDS. VSS. SCD'S PLACED. BED LOW AND LOCKED, CALL LIGHT IN REACH. WILL CONTINUE PLAN OF CARE.
--- NOTE | 2019-01-30 21:00 | NUR ---
VISITORS IN ROOM. PT DENIES PAIN/NEEDS ATT. VSS, BED LOW AND LOCKED, CALL LIGHT IN REACH. WILL CONTINUE PLAN OF CARE.
--- NOTE | 2019-01-30 23:00 | NUR ---
REASSESSMENT COMPLETE, PLEASE SEE FLOW SHEETS FOR DETAILS. NO ACUTE CHANGES FROM PREVIOUS ASSESSMENT TO NOTE. VSS. DENIES PAIN/NEEDS. BED LOW AND LOCKED, CALL LIGHT IN REACH. WILL CONTINUE PLAN OF CARE.
[2019-01-31] VITALS (24 sets, daily range): BP systolic 104–136; BP diastolic 45–91
--- NOTE | 2019-01-31 01:00 | NUR ---
RESTING. WAKES EASILY. DENIES PAIN/NEEDS. VSS, BED LOW AND LOCKED, CALL LIGHT IN REACH. WILL CONTINUE PLAN OF CARE.
--- NOTE | 2019-01-31 02:44 | NUR ---
REASSESSMENT COMPLETE, PLEASE SEE FLOW SHEETS FOR DETAILS. NO ACUTE CHANGES TO NOTE. DENIES PAIN/NEEDS. VSS, BED LOW AND LOCKED, CALL LIGHT IN REACH. WILL CONTINUE PLAN OF CARE.
--- NOTE | 2019-01-31 05:00 | NUR ---
FULL BED BATH AND LINEN CHANGE PROVIDED. TOLERATED WELL. UP TO CHAIR. DENIES PAIN/NEEDS. VSS, CALL LIGHT IN REACH. WILL CPOC.
[2019-01-31 05:59] LABS: HEMATOCRIT 22.9 % (42.0-54.0); HEMOGLOBIN 7.7 g/dL (13.5-17.5); MCH 30.7 pg (26.0-34.0); MCHC 33.6 g/dL (31.0-37.0); MCV 91.2 fL (80.0-100.0); MEAN PLATELET VOLUME 10.2 fL (7.4-10.4); RBC 2.51 10x6/uL (4.20-6.10); RDW 14.4 % (11.5-14.5)
[2019-01-31 06:02] LABS: WBC 7.1 10x3/uL (4.8-10.8)
[2019-01-31 06:24] LABS: ALBUMIN 2.1 g/dL (3.4-5.0); BILIRUBIN - TOTAL 0.5 mg/dL (0.2-1.3); CALCIUM 7.8 mg/dL (8.5-10.1); CARBON DIOXIDE 24.3 mmol/L (21.0-32.0); CREATININE - SERUM 2.8 mg/dL (0.6-1.3); POTASSIUM - SERUM 4.3 mmol/L (3.5-5.1); PROTEIN - SERUM 5.5 g/dL (6.4-8.2)
--- NOTE | 2019-01-31 07:00 | NUR ---
AWAKE AND ALERT UP IN CHAIR AT BEDSIDE. NO DISTRESS. CHEST AND SUBSTERNAL DRESSING DRY AND INTACT. DUY DRAIN INTACT. SEROUS DRAINAGE BULB COMPRESSED. PAIN AT MINIMAL. RIJ CENTRAL LINE SALINE LOCK. DRESSING DRY AND INTACT. MONITOR SR.OXYGEN AT 2 LITERS PER NC.
--- NOTE | 2019-01-31 08:00 | NUR ---
BREAKFAST SERVED ATE WELL
--- NOTE | 2019-01-31 11:40 | NUR ---
LUNCH TRAY SERVED. AND SET UP FOR PATIENT.
--- NOTE | 2019-01-31 13:00 | NUR ---
DR. ROGERS HERE. ORDERS NOTED
--- NOTE | 2019-01-31 14:01 | NUR ---
AMBULATED IN [place] PER PHYSICAL THERAPY. SHORT OF BREATH WITH MINIMAL EXERTION. OXYGEN TURNED UP TO 4 LITERS WHILE AMBULATING TO KEEP PULSE OX GREATER THAN 92%. TOLERATES POORLY DUE TO SHORTNESS OF BREATH. OXYGEN RETURNED TO 2 LITERS AFTER RESTING IN BED 5 MIN.
--- NOTE | 2019-01-31 15:49 | NUR ---
UNIT OF BLOOD STARTED. NO REACTION NOTED. LASIX 40 MG IV GIVEN. HUBBARD CATH PATENT DRAINING CLEAR KEVON URINE
--- NOTE | 2019-01-31 17:48 | NUR ---
HUBBARD LEAKING IRRIAGATED WITH SOME RESISTANCES RETURN OF LONG BLOOD CLOT. DRAINED OVER 400 CC URINE. PATIENT DENIES ANY FEELING OF FULLNESS IN LOWER ABD. BLOOD COMPLETED PATIENT TOLERATED WELL.
--- NOTE | 2019-01-31 17:54 | NUR ---
SUBSTERNAL DRESSING CHANGED SMALL AMOUNT RED DRAINAGE ON BANDAGE. INCISIONS CLEAN WITH BETADINE. STERILE 4X4 APPLIED. SECURE WITH TEGRADERM. PATEINT TOLERATED WELL. BIO GUARD PADS REPLACED. PACER WIRES INTACT X 4.
--- NOTE | 2019-01-31 20:20 | NUR ---
NNOTIFIED DR ROGERS OF PTS C/O WORSENING SOB. UOP IS 1139 FOR THE LAST 4 HRS SINCE GETTING LASIX. VSS ON 2 L NC. SOB INCREASES WITH EXERTION. ORDER RECIEVED FOR STAT ABG AND CALL WITH RESULTS. RT NOTIFIED OF ORDER.
--- NOTE | 2019-01-31 20:35 | NUR ---
DR ROGERS GIVEN ABG RESULTS. ORDER FOR BIPAP 2 HRS THEN REPEAT ABG
--- NOTE | 2019-01-31 23:10 | NUR ---
ABG REPEATED AFTER 2 HRS ON BIPAP AND RESULT TO DR ROGERS. ORDER RECIEVED TO CONTINUE BIPAP TILL AM AND TREAT LOW GLUCOSE. PT IS TOLERATING BIPAP WELL.
[2019-02-01] VITALS (26 sets, daily range): BP systolic 112–144; BP diastolic 50–91
--- NOTE | 2019-02-01 03:30 | NUR ---
ASSESSMENT COMPLETED. NO CHANGES NOTED. DENIES NEEDS.
[2019-02-01 04:32] LABS: HEMATOCRIT 26.1 % (42.0-54.0); HEMOGLOBIN 8.9 g/dL (13.5-17.5); MCHC 34.1 g/dL (31.0-37.0); MCV 90.9 fL (80.0-100.0); MEAN PLATELET VOLUME 9.8 fL (7.4-10.4); RBC 2.87 10x6/uL (4.20-6.10); RDW 14.4 % (11.5-14.5); WBC 5.9 10x3/uL (4.8-10.8)
[2019-02-01 04:50] LABS: ALBUMIN 2.2 g/dL (3.4-5.0); ANION GAP 9.6 mmol/L (8-16); BILIRUBIN - TOTAL 0.6 mg/dL (0.2-1.3); CALCIUM 8.2 mg/dL (8.5-10.1); CARBON DIOXIDE 29.5 mmol/L (21.0-32.0); CREATININE - SERUM 2.4 mg/dL (0.6-1.3); POTASSIUM - SERUM 4.1 mmol/L (3.5-5.1); PROTEIN - SERUM 5.9 g/dL (6.4-8.2)
--- NOTE | 2019-02-01 07:00 | NUR ---
REPORT RECEIVED FROM THE OFF GOING RN. SEE ASSESSMENT IN THE PTS FLOW SHEET. PT SITTING IN BED. NSR ON THE MONIOR. BIPAP ON THE PT. BEAN DRAIN NOTED. PT AWAKE, ALERT AND FOLLOWING COMMANDS. BIPAP REMOVED AND PLACED ON O2. PT ASSISTED UP IN BED. MEAL TRAY PROVIDED FOR THE PT. CALL LIGHT IN REACH. WILL CONT POC.
--- NOTE | 2019-02-01 07:59 | NUR ---
DR ROGERS AT THE BEDSIDE. KEEP PT IN BED. GIVE LASIX NOW.
--- NOTE | 2019-02-01 08:22 | NUR ---
ACQUISITIONS LIBRARIAN IN THE PTS ROOM.
--- NOTE | 2019-02-01 09:25 | NUR ---
PT RANKS PAIN 5/10 AND REQUESTED A PAIN PILL. PERCOCET GIVEN. SEE MAR.
--- NOTE | 2019-02-01 09:29 | NUR ---
Nutrition Follow Up AHA Diabetic diet with 30-50% intake of meals Drinks some Glucerna Weight 234lb BG 90,88,81 today Provided some diabetic teaching. Answered questions about diabetic diet RD following
--- NOTE | 2019-02-01 10:46 | NUR ---
DR COPELAND PAGED ABOUT CONSULT. WAITING FOR DR COPELAND TO PAGE BACK.
--- NOTE | 2019-02-01 12:30 | NUR ---
DR COPELAND AT THE PTS BEDSIDE.
--- NOTE | 2019-02-01 13:40 | NUR ---
DR ROGERS IN THE UNIT. CONTULT FOR PICC LINE AND ADD IV DOUBUTAMINE AT 3MCG/KG/MIN. SYDNI RIVERA CALLED AND MADE AWARE OF NEEDING A PICC LINE.
--- NOTE | 2019-02-01 15:00 | NUR ---
SYDNI RIVERA PLACED PICC LINE TO RIGHT UPPER ARM. OK TO USE.
--- NOTE | 2019-02-01 15:10 | NUR ---
PT REQUEST PERCOCET FOR 5/10 PAIN.
--- NOTE | 2019-02-01 21:30 | NUR ---
PT UP TO SIDE OF BED AND BATHED SELF WITH HIBICLENS. MINIMAL ASSISTANCE REQUIRED. BED LINEN CHANGED.
[2019-02-02] VITALS (24 sets, daily range): BP systolic 104–139; BP diastolic 41–68
--- NOTE | 2019-02-02 02:00 | NUR ---
SUBSTERNAL DRSG CHANGED. DUY DRAIN EMPTIED. SEROUS OUTPUT.
--- NOTE | 2019-02-02 09:47 | NUR ---
PT AMBULATED WITH PHYSCIAL THEARPY ABOUT 50 FEET. PT SOB. SLOW AND STEADY GAIT. PT TOLERATED WELL.
[2019-02-02 11:33] LABS: BASOPHILS 0.3 % (0-2); EOSINOPHILS 1.8 % (0-7); HEMATOCRIT 26.8 % (42.0-54.0); IMMATURE GRANULOCYTES 3.8 % (0-5); LYMPHOCYTES 11.7 % (15-50); MCH 30.8 pg (26.0-34.0); MCHC 33.6 g/dL (31.0-37.0); MCV 91.8 fL (80.0-100.0); MEAN PLATELET VOLUME 9.8 fL (7.4-10.4); MONOCYTES 13.1 % (2-11); NEUTROPHILS 69.3 % (40-80); PLATELET COUNT 157 10x3/uL (130-400); RBC 2.92 10x6/uL (4.20-6.10); RDW 14.4 % (11.5-14.5); WBC 6.1 10x3/uL (4.8-10.8)
[2019-02-02 11:52] LABS: ALBUMIN 2.2 g/dL (3.4-5.0); ANION GAP 6.4 mmol/L (8-16); BILIRUBIN - TOTAL 0.65 mg/dL (0.2-1.3); CREATININE - SERUM 2.2 mg/dL (0.6-1.3); POTASSIUM - SERUM 4.4 mmol/L (3.5-5.1); PROTEIN - SERUM 5.9 g/dL (6.4-8.2)
--- NOTE | 2019-02-02 11:54 | NUR ---
RIGHT IJ CVL LINE DC'D. CATHETER TIP INTACT. DRESSING C/D/I. PT TOLERATED WELL.
--- NOTE | 2019-02-02 13:28 | NUR ---
FSBS TREATED PRIOR TO PT EATING LUNCH. SEE MAR. REPEAT FSBS 268. DR PLASCENCIA NOTIFIED. HE STATED TO REPEAT SS AND RECHECK.
--- NOTE | 2019-02-02 14:32 | NUR ---
FSBS 216. SPOKE WITH DR PLASCENCIA. GIVE 6 UNITS NOW AND RECHECK IN 1 HOUR.
--- NOTE | 2019-02-02 17:17 | NUR ---
10 CC REMOVED FROM FC BULB AND IT WAS DC'D WITH NO ISSUES.
--- NOTE | 2019-02-02 17:33 | NUR ---
PT VOIDED 120CC OF CLEAR, YELLOW URINE WITH SMALL AMOUNTS OF BLOODY MAROON CLOTS. PT STATED HE VOIDED WITH NO ISSUES. PT REQUESTED A PERCOCET FOR INCISIONAL PAIN. SEE MAR. WILL CONT POC.
--- NOTE | 2019-02-02 17:45 | NUR ---
PT ASSISTED BACK INTO BED. TOLERATED WELL. VSS. WILL CONT POC.
--- NOTE | 2019-02-02 19:52 | NUR ---
IN PT ROOM TO DO ASSESSMENT PT WAS FOUND TO BE VERY DIAPHORETIC AND CONFUSED. ASSESSMENT COMPLETE.
--- NOTE | 2019-02-02 19:57 | NUR ---
BLOOD SUGAR CHECKED AND WAS 30. JUICE GIVEN AND 1 AMP OF D50 PER MD ORDER. WILL CONTINUE TO MONITOR. PATIENT WAS CONFUSED AND UNABLE TO TELL WHERE HE WAS OR THE YEAR. WHILE GIVING THE GLUCOSE PATIENT STARTED TO REMEMBER AND STATED HE WAS FEELING BETTER.
--- NOTE | 2019-02-02 20:23 | NUR ---
DR. ROGERS NOTIFIED OF BS OF 30 WITH 1 AMP OF D50 GIVEN AND JUICE. RECHECK LEVEL OF 107, ORDER TO NOTIFY DR. PLASCENCIA WAS GIVEN.
--- NOTE | 2019-02-02 20:29 | NUR ---
DR. PLASCENCIA NOTIFIED OF BS AND MEASURES TAKEN, WILL CONTINUE TO MONITOR BS CLOSELY.
--- NOTE | 2019-02-02 23:38 | NUR ---
RT HERE AND PLACED PATIENT ON CPAP. PATIENT GLUCOSE CHECKED AND PATIENT DENIES ANY NEEDS AT THIS TIME. CALL LIGHT WITHIN REACH, BED IN LOW POSITION.
[2019-02-03] VITALS (25 sets, daily range): BP systolic 106–144; BP diastolic 57–89
[2019-02-03 05:52] LABS: ALBUMIN 2.1 g/dL (3.4-5.0); BILIRUBIN - TOTAL 0.54 mg/dL (0.2-1.3); CARBON DIOXIDE 30.2 mmol/L (21.0-32.0); CREATININE - SERUM 2.3 mg/dL (0.6-1.3); POTASSIUM - SERUM 4.2 mmol/L (3.5-5.1); PROTEIN - SERUM 5.7 g/dL (6.4-8.2)
--- NOTE | 2019-02-03 07:20 | NUR ---
REPORT RECEIVED. SHIFT ASSESSMENT COMPLETE. PT UP IN CHAIR AT BEDSIDE. REQUESTING A WALKER, FEELS WILL NEED TO HAVE A BOWEL MOVEMENT AND WANTS TO BE PREPARED. INCENTIVE SPIROMETER 1250.
[2019-02-03 07:32] LABS: HEMOGLOBIN 8.6 g/dL (13.5-17.5); MCH 30.6 pg (26.0-34.0); MCHC 33.1 g/dL (31.0-37.0); MCV 92.5 fL (80.0-100.0); MEAN PLATELET VOLUME 9.8 fL (7.4-10.4); RBC 2.81 10x6/uL (4.20-6.10); RDW 14.5 % (11.5-14.5); WBC 5.9 10x3/uL (4.8-10.8)
--- NOTE | 2019-02-03 09:53 | NUR ---
Nutrition Follow Up: AHA Diabetic diet with 44% average po intake Encouraged >/=50% intake of meals Pt is drinking some Glucerna Pt has no questions about nocturnal hypoglycemia Pt reports his significant others daughter is a health educator RD following
--- NOTE | 2019-02-03 11:30 | NUR ---
REASSESSMENT COMPLETE. PT IN CHAIR AT BEDSIDE. VOICES NO NEEDS. CALL LIGHT IN REACH.
--- NOTE | 2019-02-03 13:50 | NUR ---
TEDS AND SCDS REMOVED DUE TO SOILING. PT WASHED UP AND NEW TEDS AND GOWN PLACED. NEW SDCS AT BEDSIDE FOR WHEN PT RETURNS TO BED.
--- NOTE | 2019-02-03 14:12 | NUR ---
SUBSTERNAL DRESSING CHANGED. SEROSANG SATURATED GAUZE AT RIGHT TPM WIRE SITE. INCISIONS CLEANED WITH IODINE SWABS AND OINTMENT APPLIED. COVERED WITH GAUZE AND TEGADERM. 90ML SEROSANG DRAINAGE EMPTIED FROM DUY DRAIN.
--- NOTE | 2019-02-03 19:04 | NUR ---
BEDSIDE SHIFT REPORT GIVEN BY DEPARTING RN. PT OOB IN CHAIR. AAOX4. DENIES ANY PAIN OR NEEDS AT THIS TIME. FRESH ICE WATER PROVIDED. RT UPPER ARM PICC LINE NOTED. DUY DRAIN NOTED AND COMPRESSED WITH SS LIQUID DRAINING. ASSESSMENT COMPLETE. SEE FLOWSHEET FOR FULL DETAILS. ASSISTED TO BED. WARM BLANKETS PROVIDED. SAFETY MEASURES IN PLACE. CBIR.
--- NOTE | 2019-02-03 20:23 | NUR ---
HS MEDS GIVEN. TOLERATED WELL.
--- NOTE | 2019-02-03 22:16 | NUR ---
PRN PAIN MED GIVEN FOR INCISIONAL CHEST PAIN. SEE MAR FOR DETAILS. RT UPPER ARM PICC LINE DRESSING CHANGED PER PROTOCOL USING STERILE TECHNIQUE. BIPAP PLACED ON PT. TOLERATED OK AT THIS TIME.
--- NOTE | 2019-02-03 23:55 | NUR ---
REASSESSMENT COMPLETE. ASLEEP SHOWING NO SS OF DISTRESS. SEE FLOWSHEET FOR FULL DETAILS. DENIES ANY NEEDS AT THIS TIME. SAFETY MEASURES IN PLACE. CBIR.
[2019-02-04] VITALS (27 sets, daily range): BP systolic 91–153; BP diastolic 50–88
--- NOTE | 2019-02-04 03:27 | NUR ---
ASLEEP SHOWING NO SS OF DISTRESS. VSS. REASSESSMENT COMPLETE. NO CHANGES NOTED. SEE FLOWSHEET FOR DETAILS.
--- NOTE | 2019-02-04 07:30 | NUR ---
REPORT RECEIVED. SHIFT ASSESSMENT COMPLETE. PT ASSISTED UP TO CHAIR AND AWAITING BREAKFAST.
--- NOTE | 2019-02-04 09:24 | NUR ---
physical therapist at bedside to walk patient. bertha drain emptied prior to activity 30ml drainage recorded.
[2019-02-04 10:33] LABS: HEMATOCRIT 27.6 % (42.0-54.0); HEMOGLOBIN 9.1 g/dL (13.5-17.5); MCH 30.6 pg (26.0-34.0); MCV 92.9 fL (80.0-100.0); MEAN PLATELET VOLUME 9.2 fL (7.4-10.4); RBC 2.97 10x6/uL (4.20-6.10); RDW 14.4 % (11.5-14.5)
--- NOTE | 2019-02-04 10:33 | NUR ---
ekg obtained per order for pt elevated hr. lab drawn as ordered. bertha drain emptied post walking therapy. 11cc serous fluid removed
[2019-02-04 10:41] LABS: WBC 8.3 10x3/uL (4.8-10.8)
[2019-02-04 10:47] LABS: ALBUMIN 2.3 g/dL (3.4-5.0); ANION GAP 13.1 mmol/L (8-16); BILIRUBIN - TOTAL 0.58 mg/dL (0.2-1.3); CARBON DIOXIDE 25.7 mmol/L (21.0-32.0); CREATININE - SERUM 2.5 mg/dL (0.6-1.3); POTASSIUM - SERUM 4.8 mmol/L (3.5-5.1); PROTEIN - SERUM 6.2 g/dL (6.4-8.2)
--- NOTE | 2019-02-04 13:45 | NUR ---
PT REMAINS IN A-FIB. TELEPHONE ORDER TO PLACE VENTRICULAR WIRE TO TPM AND KEEP TPM NEARBY. NO INSTRUCTION TO TURN ON. WILL HAVE NEW ORDER FOR SOTOLOL.
--- NOTE | 2019-02-04 18:10 | NUR ---
PT ASSISTED FROM CHAIR TO BED. ALL NEW LINENS. DUY DRAIN EMPTIED. 40CC OUT. DR ROGERS AT BEDSIDE TO CHECK ON PT.
--- NOTE | 2019-02-04 19:30 | NUR ---
Received patient resting in bed with eyes open, assessment completed per flowsheet. Patient AO x4, calm and cooperative. R anterior neck incision dressing CDI, no difficulty breathing/swallowing noted. S1/S2 noted NSR on telemetry with HR 65, rythmic and regular. Breathing is even/unlabored on 2L via NC with O2 sat 97%, lung sounds clear bilateral upper and mid with diminished lower. Midsternal incision dressing CDI, Substernal TPM wires/Jamin x1 with dressing CDI. Abdomen is soft/round with bowel sounds active x4, non-tender. All pulses palpable with cap refill < 3 sec, skin warm/dry with full ROM all extremities. Patient c/o chest aching 2/10 post PRN medication, repositioned with stated relief and will reassess. No further needs at this time, see flowsheet for details. All VSS and will continue to monitor.
--- NOTE | 2019-02-04 21:00 | NUR ---
HS meds given with no difficulty swallowing/breathing noted. Discussed medications/discharge needs with patient, all questions answered to satisfaction. Denies further needs at this time, all VSS and will continue to monitor.
--- NOTE | 2019-02-04 23:20 | NUR ---
Reassessment completed per flowsheet. S1/S2 noted NSR on telemetry with HR 62, rythmic and regular. Breathing is even/unlabored on BiPAP 30%, lung sounds clear throughout. Midsternal/Substernal dressing CDI, Jamin drain x1 compressed with small serous drainage. R leg harvest site open to air, well approximated. Full ROM all extremities with all pulses palpable, cap refill < 3 sec. Denies pain or other needs at this time, see flowsheet for details. All VSS and will continue to monitor.
[2019-02-05] VITALS (23 sets, daily range): BP systolic 98–138; BP diastolic 49–72
--- NOTE | 2019-02-05 01:00 | NUR ---
Patient sleeping in bed on BiPAP 30% with O2 sat 98%, no s/s of distress at this time. Denies pain or other needs at this time, all VSS and will continue to monitor.
--- NOTE | 2019-02-05 03:20 | NUR ---
Reassessment completed per flowsheet, no changes from previous assessment. S1/S2 noted NSR on telemetry with HR 60, rythmic and regular. Breathing is even/unlabored on BiPAP 30% with O2 sat 98%, lung sounds clear bilateral upper and mid with diminished lower. Midline sternum/substernal incision dressing CDI, Jamin drain x1 with small serous drainage. All pulses palpable with cap refill < 3 sec, skin warm/dry. Denies pain or other needs, see olga for details. All VSS and will continue to monitor.
--- NOTE | 2019-02-05 05:00 | NUR ---
Patient resting in bed with eyes open, patient refused bed bath at this time. AM labs collected without difficulty, denies pain or other needs at this time. Will continue to monitor.
--- NOTE | 2019-02-05 05:45 | NUR ---
Patient off unit to Radiology for PA/Lat, tolerated well. Returned to [facility] and placed in chair at bedside, patient NSR on telemetry with HR 69.
[2019-02-05 05:50] LABS: BASOPHILS 0.2 % (0-2); EOSINOPHILS 1.5 % (0-7); HEMATOCRIT 25.9 % (42.0-54.0); HEMOGLOBIN 8.4 g/dL (13.5-17.5); IMMATURE GRANULOCYTES 5.9 % (0-5); LYMPHOCYTES 10.4 % (15-50); MCH 29.9 pg (26.0-34.0); MCHC 32.4 g/dL (31.0-37.0); MCV 92.2 fL (80.0-100.0); MEAN PLATELET VOLUME 9.4 fL (7.4-10.4); MONOCYTES 9.6 % (2-11); NEUTROPHILS 72.4 % (40-80); PLATELET COUNT 250 10x3/uL (130-400); RBC 2.81 10x6/uL (4.20-6.10); RDW 14.2 % (11.5-14.5); WBC 8.8 10x3/uL (4.8-10.8)
[2019-02-05 06:06] LABS: ALBUMIN 2.1 g/dL (3.4-5.0); BILIRUBIN - TOTAL 0.51 mg/dL (0.2-1.3); CARBON DIOXIDE 26.6 mmol/L (21.0-32.0); CREATININE - SERUM 2.9 mg/dL (0.6-1.3); MAGNESIUM - SERUM 2.3 mg/dL (1.8-2.4); POTASSIUM - SERUM 4.6 mmol/L (3.5-5.1); PROTEIN - SERUM 5.9 g/dL (6.4-8.2)
--- NOTE | 2019-02-05 07:20 | NUR ---
REPORT RECEIVED. SHIFT ASSESSMENT COMPLETE. PT UP IN CHAIR. SINUS RHYTHM ON MONITOR.
--- NOTE | 2019-02-05 10:05 | NUR ---
DR ROGERS BY TO SEE PATIENT. WILL CHANGE MEDICATIONS. PLANS TO KEEP PATIENT OVER THE WEEKEND.
--- NOTE | 2019-02-05 10:06 | NUR ---
NUTRITION F/U PT UP TO CHAIR, REPORTS GOOD INTAKE AHA DIET. WILL CONTINUE TO PROVIDE DIET, MONITOR INTAKE. RD FOLLOWING
--- NOTE | 2019-02-05 15:08 | NUR ---
PT UP WALKING WITH PHYSICAL THERAPY. NO DISTRESS. HR REMAINS SINUS IN 70s
--- NOTE | 2019-02-05 16:41 | EC ---
PATIENT:GEOVANNY ROSALES DATE OF SERVICE: 01/27/19 SEX: M MEDICAL RECORD: [id number] DATE OF : 44 LOCATION:[place] [address] AGE OF PATIENT: 78 ADMISSION DATE: 01/27/19 REFERRING PHYSICIAN: INTERPRETING PHYSICIAN: CELSO MULLIGAN MD ECHOCARDIOGRAM REPORT ECHO CHARGES 4 ECHO COMPLETE Date: 02/01/19 CLINICAL DIAGNOSIS: S/P CABG/AVR ECHOCARDIOGRAPHIC MEASUREMENTS (adult normal given) AC root (d.<3.7cm) 0 cm LV Septum d (<1.2 cm> 0 cm Valve Excursion 0 cm LV Septum (systole) 0 cm Left Atria (s.<4.0cm> 0 cm LVPW d(<1.2cm) 0 cm RV (d.<2.3cm) 0 cm LVPW (sytole) 0 cm LV diastole(<5.6CM) 0 cm MV E-F(>70mm/sec) 0 cm LV systole 0 cm LVOT Diameter 0 cm MV exc.(>10mm) 0 cm Est.ejection fraction (50-75%) 0 % DOPPLER: LVIT cm/sec A 74.0 cm/sec E 105.0 cm/sec LA cm/sec RVSP 0 mmHg LVOT 114 cm/sec AOP1/2T 0 m/s Asc. Ao 186 cm/sec RVOT 0 cm/sec RA 0 cm/sec PA 0 cm/sec AV Gradient Peak 14.0 mmHg AV Mean 7.6 mmHg AV Area cm MV Gradient Peak 3.9 mmHg MV Mean 1.7 mmHg MV Area cm COMMENTS: Pulp Refiner Operator: 1 MORRIS SANCHEZOE Special Education Director: 2 Dr. Wells TAPE# PACS Pericardial Effusion Y DATE OF SERVICE: FINDINGS: 1. Left ventricular chamber size is within normal limits. Left ventricular systolic function is mildly reduced, overall ejection fraction 40%. 2. Left atrium, right atrium, and right ventricular chamber sizes are mildly dilated. 3. 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 The remaining valvular structures have normal structure and motion. ECHOCARDIOGRAM REPORT [id number] GEOVANNY ROSALES 4. Doppler interrogation reveals no significant valvular insufficiency or stenosis. 5. Small pericardial effusion is present. This is not hemodynamically significant. No evidence of left ventricular thrombus. TRANSINT:[id number] Voice Confirmation ID: [id number] DOCUMENT ID: [id number] CELSO MULLIGAN MD at 1641 CC: [id number] DICTATION DATE: 02/01/19 1209 SANITARIAN AIDE: 02/01/19 1307 ADM IN [place] [address] [place] [address]
--- NOTE | 2019-02-05 18:15 | NUR ---
PT ASSISTED BACK TO BED. HIBICLEANS BATH PROVIDED. SUBSTERNAL DRESSING CHANGED. DUY DRAIN EMPTIED.
--- NOTE | 2019-02-05 19:00 | NUR ---
REPORT RECIEVED, SHIFT ASSESSMENT COMPLETE, PLEASE SEE FLOW SHEETS FOR DETAILS. VSS. BED LOW AND LOCKED, CALL LIGHT IN REACH. WILL CONTINUE PLAN OF CARE.
--- NOTE | 2019-02-05 21:00 | NUR ---
75 ml yellow urine out. Denies pain/needs ATT. Bed low and locked, call light in reach. VSS, will continue plan of care.
--- NOTE | 2019-02-05 23:00 | NUR ---
Reassessment complete, please see flow sheets for details. Hemodynamically stable. Bed low and locked, call light in reach. Will continue plan of care.
[2019-02-06] VITALS (24 sets, daily range): BP systolic 106–140; BP diastolic 44–88
--- NOTE | 2019-02-06 02:43 | NUR ---
REASSESSMENT COMPLETE, PLEASE SEE FLOW SHEETS FOR DETAILS. NO ACUTE CHANGES TO NOTE. HEMODYNAMICALLY STABLE. BED LOW AND LOCKED, CALL LIGHT IN REACH. WILL CONTINUE PLAN OF CARE.
--- NOTE | 2019-02-06 05:00 | NUR ---
FULL BED BATH AND LINEN CHANGE ASSISTED WITH. PATIENT TOLERATED WELL. DENIES ANY OTHER NEEDS. HEMODYNAMICALLY STABLE. BED LOW AND LOCKED, CALL LIGHT IN REACH. WILL CONTINUE PLAN OF CARE.
[2019-02-06 06:04] LABS: HEMATOCRIT 27.2 % (42.0-54.0); HEMOGLOBIN 8.9 g/dL (13.5-17.5); MCH 30.3 pg (26.0-34.0); MCHC 32.7 g/dL (31.0-37.0); MCV 92.5 fL (80.0-100.0); MEAN PLATELET VOLUME 9.5 fL (7.4-10.4); RBC 2.94 10x6/uL (4.20-6.10); RDW 14.4 % (11.5-14.5); WBC 10.8 10x3/uL (4.8-10.8)
[2019-02-06 06:31] LABS: ALBUMIN 2.2 g/dL (3.4-5.0); ANION GAP 14.7 mmol/L (8-16); BILIRUBIN - TOTAL 0.42 mg/dL (0.2-1.3); CALCIUM 8.3 mg/dL (8.5-10.1); CARBON DIOXIDE 24.9 mmol/L (21.0-32.0); CREATININE - SERUM 2.9 mg/dL (0.6-1.3); POTASSIUM - SERUM 4.6 mmol/L (3.5-5.1); PROTEIN - SERUM 5.8 g/dL (6.4-8.2)
--- NOTE | 2019-02-06 09:30 | NUR ---
AMBULATED 200FT WITH PHYSICAL THERAPY.
--- NOTE | 2019-02-06 14:30 | NUR ---
AMBULATED 250FT WITH PHYSICAL THERAPY.
--- NOTE | 2019-02-06 19:00 | NUR ---
ASSESSMENT DOEN SEE FLOW SHEET VSS WILL CONTINUE TO MONITOR PT VERBALZIES NO COMPLAINTS AT THIS TIME.
--- NOTE | 2019-02-06 20:51 | NUR ---
MEDS GIVEN PER MAR NO DIFFICULTY SWALLOWING NOTED WILL CONTINUE TO MONITOR.
--- NOTE | 2019-02-06 21:28 | NUR ---
BIPAP IN PLACE.
--- NOTE | 2019-02-06 23:00 | NUR ---
REASSESSMENT DONE SEE FLOW SHEET VSS. BREAK FROM BIPAP GIVEN PT ON ROOM AIR WILL CONTINUE TO MONITOR.
[2019-02-07] VITALS (24 sets, daily range): BP systolic 96–147; BP diastolic 46–66
--- NOTE | 2019-02-07 00:10 | NUR ---
PT BACK ON BIPAP.
--- NOTE | 2019-02-07 01:00 | NUR ---
PT IN BED RESTING VSS WILL CONTINUE TO MONITOR.
--- NOTE | 2019-02-07 02:48 | NUR ---
REASSESSMENT DONE SEE FLOW SEHET VSS.
--- NOTE | 2019-02-07 05:00 | NUR ---
COMPLETE BED BATH GIVEN. LINEN CHANGE. CHLORO BATH. VSS WILL CONTINUE TO MONTIOR.
[2019-02-07 06:16] LABS: HEMATOCRIT 27.8 % (42.0-54.0); HEMOGLOBIN 9.2 g/dL (13.5-17.5); MCH 30.5 pg (26.0-34.0); MCHC 33.1 g/dL (31.0-37.0); MCV 92.1 fL (80.0-100.0); MEAN PLATELET VOLUME 9.5 fL (7.4-10.4); RBC 3.02 10x6/uL (4.20-6.10); RDW 14.1 % (11.5-14.5); WBC 10.7 10x3/uL (4.8-10.8)
[2019-02-07 06:51] LABS: ALBUMIN 2.2 g/dL (3.4-5.0); BILIRUBIN - TOTAL 0.48 mg/dL (0.2-1.3); CARBON DIOXIDE 24.6 mmol/L (21.0-32.0); POTASSIUM - SERUM 4.6 mmol/L (3.5-5.1)
--- NOTE | 2019-02-07 10:30 | NUR ---
AMBULATED 250 FT WITH PHYSICAL THERAPY. NO SUPPLEMENTAL O2 IN USE. MAINTAINED SR ON MONITOR AND SPO2 > 90%.
--- NOTE | 2019-02-07 13:30 | NUR ---
AMBULATED 500FT WITH PHYSICAL THERAPY. NO SUPPLEMENTAL O2 IN USE. MAINTAINED SR ON MONITOR.
[2019-02-07 16:31] LABS: CREATININE - URINE 103.9 mg/dL (30-125); PRO/CRE RATIO URINE 0.2 mg/g; PROTEIN - URINE 23.9 mg/dL (0.0-11.9)
[2019-02-07 16:39] LABS: CREATININE - URINE 103.9 mg/dL (30-125)
--- NOTE | 2019-02-07 21:01 | NUR ---
1900 REPORT RECEIVED CARE ASSUMED ASSESSMENT DONE SEE FLOW SHEET VSS NO SIGNS OF ACUTE DISTRESS NOTED WILL CONTINUE TO MONITOR. 2100 MEDS GIVNE PER NOV VSS.
--- NOTE | 2019-02-07 23:00 | NUR ---
REASSESSMENT DONE SEE FLOW SHEET VSS WILL CONTINUE TO MONITOR.
[2019-02-08] VITALS (26 sets, daily range): BP systolic 104–145; BP diastolic 50–76
--- NOTE | 2019-02-08 00:56 | NUR ---
CALL LIGHT ANSWERED, ASSISSTED BACK IN BED, VOID X1. DENIES OTHER NEEDS. CALL LIGHT WITHIN REACH.
--- NOTE | 2019-02-08 01:00 | NUR ---
PT RESTING IN BED VSS WILL CONTINUE TO MONITOR.
--- NOTE | 2019-02-08 03:00 | NUR ---
REASSESSMENT DONE SEE FLOW SHEET VSS. SUBSTERNAL DRESSING CHANGED [address] VSS.
--- NOTE | 2019-02-08 05:00 | NUR ---
PT TAKEN FOR PA AND LATERAL. MINIMAL ASSISTANCE REQUIRED. VSS WILL CONTINUE TO MONITOR.
[2019-02-08 06:22] LABS: HEMATOCRIT 28.1 % (42.0-54.0); HEMOGLOBIN 9.1 g/dL (13.5-17.5); MCH 29.9 pg (26.0-34.0); MCHC 32.4 g/dL (31.0-37.0); MCV 92.4 fL (80.0-100.0); MEAN PLATELET VOLUME 9.3 fL (7.4-10.4); RBC 3.04 10x6/uL (4.20-6.10); RDW 14.5 % (11.5-14.5)
[2019-02-08 06:30] LABS: ALBUMIN 2.3 g/dL (3.4-5.0); ANION GAP 13.5 mmol/L (8-16); BILIRUBIN - TOTAL 0.51 mg/dL (0.2-1.3); CALCIUM 8.1 mg/dL (8.5-10.1); CARBON DIOXIDE 25.9 mmol/L (21.0-32.0); CREATININE - SERUM 2.8 mg/dL (0.6-1.3); POTASSIUM - SERUM 4.4 mmol/L (3.5-5.1); PROTEIN - SERUM 5.9 g/dL (6.4-8.2)
--- NOTE | 2019-02-08 07:00 | NUR ---
REPORT RECEIVED FROM THE OFF GOING RN. SEE ASSESSMENT IN THE PTS FLOWSHEET. PT SITTING UPRIGHT IN HIS BEDSIDE CHAIR. VSS. NSR ON THE MONITOR. PT DENIES PAIN AT THIS TIME. PT PULLS ABOUT 1000 ON HIS IS. INSTRUCTED TO USE 10X'S/H. L DUY DRAIN NOTED. SERSOUS DRAINAGE NOTED. MIDSTERNAL DRESSIN ZEKE. WELL APPROXIMATED AND SHOWS NO S/SX OF INFECTION NOTED. VSS AT THIS TIME. CALL LIGHT IN REACH. WILL CONT POC.
--- NOTE | 2019-02-08 07:30 | NUR ---
BREAKFAST TRAY PROVIDED FOR THE PT. PT ABLE TO FEED HIMSELF WITH NO ISSUES. WILL CONT POC.
--- NOTE | 2019-02-08 09:35 | NUR ---
PT AMBULATED WITH PHYSICAL THEARPY ABOUT 180 FEET. C/O SLIGHT SOB. PT HOOKED BACK TO ICU MONITORS. NSR WILL CONT POC.
--- NOTE | 2019-02-08 10:25 | NUR ---
Nutrition follow up Pt is sleeping now, reviewed chart AHA DM diet with 64% average po intake past 3 days BM yesterday Weight 232lb RD following
--- NOTE | 2019-02-08 11:15 | NUR ---
PT REASSESSMENT COMPLETED. SEE FLOW SHEET.
--- NOTE | 2019-02-08 13:37 | NUR ---
PT AMBULATED WITH PHYSCIAL THEARPY WITH O2 AT 2L VIA NC ABOUT 180 FEET. PT REMAINS TO C/O SOB. PT VSS. NSR ON THE MONITOR. SOB GOT BETTER AFTER REST. WILL CONT POC/MONITOR.
--- NOTE | 2019-02-08 14:30 | NUR ---
INSIDE THE ROOM. SHE GAVE THE PT A HEATING PAD AND PLACED IT UNDER THE PTS BOTTOM WITHOUT MY KNOWLEDGE. BUTTOCKS INSPECTED WITH NO REDDNESS NOTED. HEATING PAD TURNED OFF AND EXPLAINED TO THAT SHE NEEDS TO TAKE THE PAD HOME. SHE STATED OK AND WAS UNDSTANDING WHY. WILL CONT POC.
--- NOTE | 2019-02-08 18:00 | NUR ---
PT ASSISTED BACK INTO BED. VSS. DENIES PAIN. CALL LIGHT IN REACH. WILL CONT POC.
--- NOTE | 2019-02-08 18:15 | NUR ---
UA COLLECTED VIA MIDSTREAM COLLECTION. SPECIEMEN SENT TO THE LAB.
[2019-02-08 18:30] LABS: APPEARANCE CLEAR (CLEAR); BILIRUBIN NEGATIVE (NEGATIVE); COLOR YELLOW (YELLOW); GLUCOSE NEGATIVE (NEGATIVE); KETONE SMALL mg/dL (NEGATIVE); NITRITE NEGATIVE (NEGATIVE); PROTEIN NEGATIVE (NEGATIVE); SPECIFIC GRAVITY 1.015 (1.005-1.020); UROBILINOGEN NORMAL (NORMAL)
--- NOTE | 2019-02-08 19:31 | NUR ---
REPORT RECEIVED, SHIFT ASSESSMENT COMPLETED PER FLOW SHEET. AAOX4. PPP. RT UPPER ARM PICC LINE PATENT INFUSING DOBUTAMINE AT 3 MCG/KG/MIN, DRESSING C/D/I. LT SUBSTERAL CT TO DUY DRAIN COMPRESSED WITH SEROUS OUPUT. DENIES NEEDS AT THIS TIME. SEE FLOW SHEET FOR COMPLETE ASSESSMENT. CALL LIGHT WITHIN REACH. WILL CONTINUE TO MONITOR.
--- NOTE | 2019-02-08 21:10 | NUR ---
SCHEDULED MEDS GIVEN, WATER PROVIDED, TOLERATED WELL, NO DYSPHAGIA. DENIES OTHER NEEDS. CALL LIGHT WITHIN REACH.
--- NOTE | 2019-02-08 23:11 | NUR ---
REASSESSMENT COMPLETED PER FLOW SHEET, SEE FOR DETAILS. NO ACUTE CHANGES NOTED. DENINES NEEDS. CALL LIGHT WITHIN REACH. WILL CONTINUE TO MONITOR.
[2019-02-09] VITALS (26 sets, daily range): BP systolic 99–142; BP diastolic 53–77
--- NOTE | 2019-02-09 00:42 | NUR ---
CALL LIGHT ANSWERED, ASSISSTED OOB TO USE BR, GAIT STEADY. INSTRUCTED PATIENT TO USE BR CALL LIGHT WHEN FINISHED, HE VERBALIZED UNDERSTANDING.
--- NOTE | 2019-02-09 02:00 | NUR ---
RESTING, NO ACUTE CHANGES NOTED. WILL CONTINUE TO MONITOR.
--- NOTE | 2019-02-09 03:01 | NUR ---
REASSESSMENT COMPLETED PER FLOW SHEET, SEE FOR DETAILS. NO ACUTE CHANGES NOTED. DENIES NEEDS. WILL CONTINUE TO MONITOR. CALL LIGHT WITHIN REACH.
[2019-02-09 05:27] LABS: HEMATOCRIT 28.5 % (42.0-54.0); HEMOGLOBIN 9.2 g/dL (13.5-17.5); MCH 30.2 pg (26.0-34.0); MCHC 32.3 g/dL (31.0-37.0); MCV 93.4 fL (80.0-100.0); MEAN PLATELET VOLUME 9.4 fL (7.4-10.4); RBC 3.05 10x6/uL (4.20-6.10); RDW 14.9 % (11.5-14.5); WBC 10.8 10x3/uL (4.8-10.8)
[2019-02-09 05:29] LABS: ALBUMIN 2.2 g/dL (3.4-5.0); ANION GAP 13.8 mmol/L (8-16); BILIRUBIN - TOTAL 0.51 mg/dL (0.2-1.3); CARBON DIOXIDE 25.6 mmol/L (21.0-32.0); CREATININE - SERUM 2.4 mg/dL (0.6-1.3); POTASSIUM - SERUM 4.4 mmol/L (3.5-5.1); PROTEIN - SERUM 5.8 g/dL (6.4-8.2)
--- NOTE | 2019-02-09 05:30 | NUR ---
COMPLETE BED BATH GIVEN WITH SOAP AND WATER. SUBSTERNAL DRESSING CHANGED PER DOCTOR'S ORDERS. ASSISSTED OOB TO CHAIR. CALL LIGHT AND BELONGINGS WITHIN REACH. DENIES NEEDS. WILL CONTINUE TO MONITOR.
--- NOTE | 2019-02-09 07:00 | NUR ---
REPORT RECEVIEVED FROM THE OFF GOING RN. SEE ASSESSMENT IN THE PTS FLOW SHEET. PT SITTING OOB IN BEDSIDE CHAIR. DENIES PAIN. INSTRUCTED TO USE IS 10X'S/H. VSS AT THIS TIME. L DUY DRAIN NOTED COMPRESSED WITH SEROUS DRAIANGE. CALL LIGHT IN REACH. WILL CONT POC.
--- NOTE | 2019-02-09 08:00 | NUR ---
BREAKFAST TRAY PROVIDED AND AM MEDS GIVEN WITH NO ISSUES. WILL CONT POC.
--- NOTE | 2019-02-09 09:30 | NUR ---
PT AMBULATED UP AND DOWN THE [address] WAY WITH PHYSCIAL THEARPY TAKING MULTIPLE BREAKS. PT BACK INTO BED AND FEET ELEVATED PER DR ROGERS'S INSTRUCTIONS.
--- NOTE | 2019-02-09 10:01 | NUR ---
DOBUTAMINE DECREASED TO 2MCG/KG/MIN PER ORDERS.
--- NOTE | 2019-02-09 12:21 | NUR ---
PT REFUSED LUNCH AT THIS TIME. LUNCH TRAY SET ASIDE FOR WHENEVER HE IS HUNGRY.
--- NOTE | 2019-02-09 12:48 | NUR ---
PT ASSISTED TO THE BATHROOM. PT STATED THAT HE HAD A BM THIS AM AND FORGOT TO TELL ME ABOUT IT. PT VOIDED AND IN THE BEDSIDE CHAIR. LUNCH TRAY PROVIDED FOR THE PT. CALL LIGHT IN REACH. WILL CONT POC.
--- NOTE | 2019-02-09 13:01 | NUR ---
PT COMPLAINING OF SOB. O2 AT 2L VIA NC PLACED ON PT. ENCOURAGED TCDB. PT HAS BEEN USING IS 10X'S/H INSTRUCTED. PT PULLING ABOUT 750. RT NOTIFIED. BREATHING TREATMENT GIVEN VIA METANEB. JAMAL AMBROSE
--- NOTE | 2019-02-09 16:10 | NUR ---
PHYSCIAL THERAPY AT THE PTS BEDSIDE. AMBULATED ABOUT 200 FEET. VSS. TOLERATED WELL.
--- NOTE | 2019-02-09 16:15 | NUR ---
PT IN BED WITH FEET ELEVATED. CALL LIGHT IN REACH. WILL CONT POC.
--- NOTE | 2019-02-09 17:10 | NUR ---
PT LYING IN BED. HOB ELEVATED. EATING DINNER. WILL CONT POC.
--- NOTE | 2019-02-09 20:42 | NUR ---
UNABLE TO GET BLOOD RETURN FORM PICC LINE IN EITHER 3 PORTS. LINES FLUSHED AND DOBUTAMINE INFUSING PER PREVIOUS DOCUMENTATION AT 1930.
[2019-02-10] VITALS (24 sets, daily range): BP systolic 105–143; BP diastolic 47–68
[2019-02-10 04:34] LABS: BASOPHILS 0.2 % (0-2); EOSINOPHILS 2.3 % (0-7); HEMATOCRIT 26.8 % (42.0-54.0); HEMOGLOBIN 8.8 g/dL (13.5-17.5); IMMATURE GRANULOCYTES 1.6 % (0-5); MCH 30.7 pg (26.0-34.0); MCHC 32.8 g/dL (31.0-37.0); MCV 93.4 fL (80.0-100.0); MEAN PLATELET VOLUME 9.3 fL (7.4-10.4); MONOCYTES 11.7 % (2-11); NEUTROPHILS 77.2 % (40-80); PLATELET COUNT 343 10x3/uL (130-400); RBC 2.87 10x6/uL (4.20-6.10); RDW 15.1 % (11.5-14.5); WBC 10.2 10x3/uL (4.8-10.8)
[2019-02-10 05:16] LABS: ALBUMIN 2.1 g/dL (3.4-5.0); ANION GAP 9.2 mmol/L (8-16); BILIRUBIN - TOTAL 0.39 mg/dL (0.2-1.3); CARBON DIOXIDE 28.6 mmol/L (21.0-32.0); CREATININE - SERUM 2.1 mg/dL (0.6-1.3); POTASSIUM - SERUM 3.8 mmol/L (3.5-5.1); PROTEIN - SERUM 5.5 g/dL (6.4-8.2)
--- NOTE | 2019-02-10 09:27 | NUR ---
0700 PT RECIEVED UP IN CHAIR ALERT AND ORIENTED ON ROOM AIR, VSS, DENIES PAIN, MIDSTERNAL INCISION OPEN TO AIR SUBSTERNAL DRESSING CDI WITH DUY DRAIN COMPRESSED, TPM WIRES COILED, HARVEST SITES OPEN TO AIR, USES URINAL, CALL LIGHT WITHIN REACH 0800 AM MEDS GIVEN, ATE 100% BREAKFAST 0900AMBULATED ON ROOM AIR WITH THERAPY SPO2 REMAINING ABOVE 90%
--- NOTE | 2019-02-10 09:58 | NUR ---
Nutrition Follow Up: Reviewed chart ADA/Diabetic diet with 75% average po intake past 2 days Weight 223.8lb Pt sleeping now RD following
--- NOTE | 2019-02-10 15:20 | NUR ---
1100 ATE 75% LUNCH 1300 AMBULATED WITH PT 1500 SUBSTERNAL DRESSING CHANGED
--- NOTE | 2019-02-10 15:56 | NUR ---
PT REFUSED FULL BATH, STATED HE WOULD "SPOT CLEAN" BY SELF IN BATHROOM
--- NOTE | 2019-02-10 17:05 | NUR ---
PT ATE 75% DINNER
--- NOTE | 2019-02-10 18:09 | NUR ---
PT VOIDED THEN WAS ASSISTED TO BED
[2019-02-11] VITALS (29 sets, daily range): BP systolic 101–146; BP diastolic 50–67
--- NOTE | 2019-02-11 07:55 | NUR ---
0700 PT RECIEVED UP IN CHAIR ALERT AND OREINTED ON ROOM AIR VSS DENIES PAIN MIDSTERNAL INCISION OPEN TO AIR SUBSTERNAL DRESSING CDI WITH TPM WIRES COILED AND DUY DRAIN COMPRESSED WITH SEROUS FLUID, RLE HARVEST SITES OPEN TO AIR, CONTINENT, CALL LIGHT WITHIN REACH, WILL CONTINUE TO MONITOR
[2019-02-11 09:10] LABS: HEMATOCRIT 30.6 % (42.0-54.0); HEMOGLOBIN 9.9 g/dL (13.5-17.5); MCH 30.6 pg (26.0-34.0); MCHC 32.4 g/dL (31.0-37.0); MCV 94.4 fL (80.0-100.0); MEAN PLATELET VOLUME 9.3 fL (7.4-10.4); RBC 3.24 10x6/uL (4.20-6.10); RDW 15.3 % (11.5-14.5); WBC 12.2 10x3/uL (4.8-10.8)
[2019-02-11 09:22] LABS: ALBUMIN 2.3 g/dL (3.4-5.0); ANION GAP 13.9 mmol/L (8-16); BILIRUBIN - TOTAL 0.54 mg/dL (0.2-1.3); CALCIUM 8.2 mg/dL (8.5-10.1); CARBON DIOXIDE 27.4 mmol/L (21.0-32.0); POTASSIUM - SERUM 4.3 mmol/L (3.5-5.1); PROTEIN - SERUM 6.1 g/dL (6.4-8.2)
--- NOTE | 2019-02-11 15:27 | NUR ---
0900 ATE 75% BREAKFAST AND TOOK AM MEDS, WITHOUT DIFFICULTY 1100 AMBULATED WITH PT, STATED HE HAD BATH LAST NIIGHT AND DIDNT WANT ANOTHER 1300 ATE 75% LUNCH 1500 AMBULATED WITH PT
--- NOTE | 2019-02-11 18:37 | NUR ---
1700 PT ATE 75% DINNER AND WAS ASSISTED TO BED
--- NOTE | 2019-02-11 19:30 | NUR ---
SHIFT ASSESSMENT COMPLETE. PATIENT LYING SUPINE IN BED WITH HOB ELEVATED. PATIENT DENIES ANY NEEDS AT THIS TIME. CALL LIGHT WITHIN REACH, BED IN LOW POSITION.
--- NOTE | 2019-02-11 23:00 | NUR ---
REASSESSMENT COMPLETE. PATIENT DENIES ANY PAIN OR NEEDS AT THIS TIME. CALL LIGHT WITHIN REACH, BED IN LOW POSITION.
[2019-02-12] VITALS (9 sets, daily range): BP systolic 103–122; BP diastolic 38–65
[2019-02-12 06:21] LABS: BASOPHILS 0.2 % (0-2); EOSINOPHILS 2.1 % (0-7); HEMATOCRIT 30.6 % (42.0-54.0); HEMOGLOBIN 9.9 g/dL (13.5-17.5); IMMATURE GRANULOCYTES 1.4 % (0-5); LYMPHOCYTES 4.4 % (15-50); MCH 30.7 pg (26.0-34.0); MCHC 32.4 g/dL (31.0-37.0); MCV 94.7 fL (80.0-100.0); MEAN PLATELET VOLUME 9.6 fL (7.4-10.4); MONOCYTES 7.9 % (2-11); PLATELET COUNT 381 10x3/uL (130-400); RBC 3.23 10x6/uL (4.20-6.10); RDW 15.3 % (11.5-14.5); WBC 13.1 10x3/uL (4.8-10.8)
[2019-02-12 06:31] LABS: ALBUMIN 2.4 g/dL (3.4-5.0); ANION GAP 18.8 mmol/L (8-16); BILIRUBIN - TOTAL 0.65 mg/dL (0.2-1.3); CALCIUM 8.2 mg/dL (8.5-10.1); CARBON DIOXIDE 23.5 mmol/L (21.0-32.0); CREATININE - SERUM 2.1 mg/dL (0.6-1.3); POTASSIUM - SERUM 4.3 mmol/L (3.5-5.1); PROTEIN - SERUM 6.5 g/dL (6.4-8.2)
--- NOTE | 2019-02-12 09:45 | NUR ---
Nutrition Follow Up: Chart reviewed Diet: AHA ADA PO Intake: 69% meal avg BM: 02/09/19 I<O Wt loss noted - likely r/t fluid Labs reviewed - Glucose elevated Meds noted including Lasix Rec continue current diet. RD following.
--- NOTE | 2019-02-12 16:15 | NUR ---
TPM WIRES AND DUY DRAIN DC'D BY MADDIE KEITH. R ARM PICC DC'D. LENGTH 47CM.
[2019-02-12] MEDS ORDERED: COLACE100 MG PO (16:38)
[2019-02-12] MEDS ORDERED: LASIX40 MG PO (16:38)
[2019-02-12] MEDS ORDERED: HYDROCODON-ACE1 EAC7 PO (16:38)
[2019-02-12] MEDS ORDERED: MUCINEX DM ER1 EAC1 PO (16:38)
[2019-02-12] MEDS ORDERED: COREG 3.1253.125 MG PO (16:38)
--- NOTE | 2019-02-12 17:00 | NUR ---
DISCHARGE INSTRUCTIONS REVIEWED WITH PATIENT AND .
--- NOTE | 2019-02-12 17:18 | NUR ---
1710: DISCHARGED HOME. ESCORTED TO CAR VIA .
--- NOTE | 2019-02-15 09:14 | MORECARE ---
CASE MANAGEMENT DISCHARGE SUMMARY PATIENT: GEOVANNY ROSALES UNIT: [id number] ADM DATE: 01/27/19 AGE: 78 : 42 SEX: M ROOM/BED: [facility] AUTHOR: SHAE,DOC PHYSICIAN: REFERRING PHYSICIAN: ROSMERY ROGERS MD DATE OF SERVICE: 02/15/19 Discharge Plan Patient Name: GEOVANNY ROSALES Facility: [facility]:[place] : 1940 Planned Disposition: Home Anticipated Discharge Date: Discharge Date: 02/12/2019 Expected LOS: Initial Reviewer: [email or web address] Initial Review Date: 01/27/2019 Generated: 02/15/19 10:13 am DCP- Discharge Planning Updated by [email or web address]: Laney Banuelos on 01/28/19 4:[address] Patient Name: GEOVANNY ROSALES Admission Status: Urgent Accout number: [id number] Admission Date: 01-27-2019 : 1940 Admission Diagnosis: Attending: ROSMERY ROGERS Current LOS: 1 Anticipated DC Date: Planned Disposition: Home Primary Insurance: MEDICARE A & B Discharge Planning Comments: CM met with patient at bedside after explaining CM role and obtaining verbal consent. Patient lives at home with his friend Ann and plans to return there upon discharge. Patient feels this would be a safe discharge. CM discussed availability / needs of home health and medical equipment. Patient denies any discharge needs at this time. Patient states he will have his friend drive him home upon discharge. CM will continue to follow and assist as needed with discharge planning / needs. Filter Tank Tender Helper Head: Laney Banuelos DCPIA - Discharge Planning Initial Assessment Updated by [email or web address]: Laney Banuelos on 01/28/19 5:19 pm * Is the patient Alert and Oriented? Yes * How many steps to enter\exit or inside your home? * PCP ASHLEY * Pharmacy [facility] * Preadmission Environment Home with Family * ADLs Independent * Other Equipment WALKER, CANE, HOME 02-PRN, SHOWER CHAIR * List name and contact numbers for known caregivers / representatives who currently or will assist patient after discharge: DARYL ROSALES - [facility] [place]- [phone] ANN RONIT OTHER- [phone] * Verbal permission to speak to the caregivers and representatives has been obtained from the patient. N/A * Community resources currently utilized None * Additional services required to return to the preadmission environment? No * Can the patient safely return to the preadmission environment? Yes * Has this patient been hospitalized within the prior 30 days at any hospital? No Coverage Notice Reviewer: [id number] Ellen Banuelos Notice Issued Date-Time: 02/12/2019 11:45 Notice Type: IM Discharge Notice Notice Delivered To: Patient Relationship to Patient: Self Precision Lens Polisher Name: Delivery Method: HAND - Hand Delivered Yenni Days: Prior Verbal Notification: Recipient Understood Notice: Yes Recipient Signature: Yes Med Rec Note Co-signed by Attending: Coverage Notice Comment: Last DP export: 01/28/19 4:25 pm Patient Name: GEOVANNY ROSALES Page [id number] at 0914 All edits/amendments must be made on the electronic document DICTATION DATE: 02/15/19912 ROLLER SKATES ASSEMBLER: CAROL 02/15/19912 RPT#: [id number] DC DATE:02/12/19 STATUS: DIS IN [facility] [address] [place] [address] END OF REPORT
== END 2019-02-12 17:10 | disposition home or self-care (01) | DRG 219 ==
LOC: D.SDCHOLD 08:30 → D.CVICU 01-27 05:00
PROVIDERS: Family Medicine Adult Medicine; Internal Medicine Interventional Cardiology; Internal Medicine Nephrology; Internal Medicine Pulmonary Disease; ADMIT Thoracic Surgery (Cardiothoracic Vascular Surgery); ATTEND Thoracic Surgery (Cardiothoracic Vascular Surgery)
PROC: 021109W Bypass Coronary Artery, Two Arteries from Aorta with Autologous Venous Tissue, Open Approach (ICD-10-PCS; 2019-01-27)
PROC: 06BP4ZZ Excision of Right Saphenous Vein, Percutaneous Endoscopic Approach (ICD-10-PCS; 2019-01-27)
PROC: 5A1221Z Performance of Cardiac Output, Continuous (ICD-10-PCS; 2019-01-27)
PROC: B24BZZ4 Ultrasonography of Heart with Aorta, Transesophageal (ICD-10-PCS; 2019-01-27)
PROC: 02100Z9 Bypass Coronary Artery, One Artery from Left Internal Mammary, Open Approach (ICD-10-PCS; principal; 2019-01-27 07:30)
PROC: 02RF0JZ Replacement of Aortic Valve with Synthetic Substitute, Open Approach (ICD-10-PCS; 2019-01-27 07:30)
PROC: 05HY33Z Insertion of Infusion Device into Upper Vein, Percutaneous Approach (ICD-10-PCS; 2019-02-01)
DX: I25.10 Atherosclerotic heart disease of native coronary artery without angina pectoris (principal); J95.821 Acute postprocedural respiratory failure; I50.23 Acute on chronic systolic (congestive) heart failure; N17.9 Acute kidney failure, unspecified; J98.11 Atelectasis; D62 Acute posthemorrhagic anemia; E87.1 Hypo-osmolality and hyponatremia; I31.3 Pericardial effusion (noninflammatory); I13.0 Hypertensive heart and chronic kidney disease with heart failure and stage 1 through stage 4 chronic kidney disease, or unspecified chronic kidney disease; E66.9 Obesity, unspecified; E11.65 Type 2 diabetes mellitus with hyperglycemia; Z68.34 Body mass index [BMI] 34.0-34.9, adult; N18.3 Chronic kidney disease, stage 3 (moderate); E11.22 Type 2 diabetes mellitus with diabetic chronic kidney disease; Z79.4 Long term (current) use of insulin; I48.91 Unspecified atrial fibrillation; J44.9 Chronic obstructive pulmonary disease, unspecified; F17.200 Nicotine dependence, unspecified, uncomplicated; R53.81 Other malaise; R60.0 Localized edema

== ENCOUNTER → 2019-02-17 12:07 | Outpatient (CLI) | payer MEDICARE, BC ==
[2019-01-28 15:21] VITALS: BMI 33.3
[~2019-02-17 12:07] MED LIST changes: +CENTRUM MEN'S1 EACH PO; +COLACE100 MG PO; +COREG 3.1253.125 MG PO; +EZFE 200200 MG PO; +HYDROCODON-ACE1 EAC7 PO; +LASIX40 MG PO; +MUCINEX DM ER1 EAC1 PO
[2019-02-17 13:43] LABS: HEMATOCRIT 34.5 % (42.0-54.0); MCH 30.2 pg (26.0-34.0); MCHC 31.9 g/dL (31.0-37.0); MCV 94.8 fL (80.0-100.0); MEAN PLATELET VOLUME 9.9 fL (7.4-10.4); RBC 3.64 10x6/uL (4.20-6.10); RDW 15.1 % (11.5-14.5); WBC 7.5 10x3/uL (4.8-10.8)
[2019-02-17 13:50] LABS: ALBUMIN 2.5 g/dL (3.4-5.0); ANION GAP 12.8 mmol/L (8-16); BILIRUBIN - TOTAL 0.32 mg/dL (0.2-1.3); CALCIUM 8.3 mg/dL (8.5-10.1); CARBON DIOXIDE 30.7 mmol/L (21.0-32.0); CREATININE - SERUM 2.4 mg/dL (0.6-1.3); POTASSIUM - SERUM 4.5 mmol/L (3.5-5.1); PROTEIN - SERUM 6.2 g/dL (6.4-8.2)
== END | disposition home or self-care (01) ==
LOC: D.RAD 12:07
PROVIDERS: ATTEND Thoracic Surgery (Cardiothoracic Vascular Surgery)
DX: J90 Pleural effusion, not elsewhere classified (principal); D64.9 Anemia, unspecified; R06.02 Shortness of breath

== ENCOUNTER → 2019-02-23 10:29 | Outpatient (CLI) | payer MEDICARE, BC ==
[2019-01-28 15:21] VITALS: BMI 33.3
[2019-02-23 11:32] LABS: ANION GAP 8.6 mmol/L (8-16); CALCIUM 8.4 mg/dL (8.5-10.1); CARBON DIOXIDE 33.6 mmol/L (21.0-32.0); CREATININE - SERUM 2.2 mg/dL (0.6-1.3); MAGNESIUM - SERUM 2.1 mg/dL (1.8-2.4); POTASSIUM - SERUM 4.2 mmol/L (3.5-5.1)
== END | disposition home or self-care (01) ==
LOC: D.CN 10:00
PROVIDERS: ATTEND Thoracic Surgery (Cardiothoracic Vascular Surgery)
DX: Z95.1 Presence of aortocoronary bypass graft (principal)

== ENCOUNTER → 2019-03-10 09:08 | Outpatient (CLI) | payer MEDICARE, BC ==
[2019-01-28 15:21] VITALS: BMI 33.3
== END | disposition home or self-care (01) ==
LOC: D.RT 09:08
PROVIDERS: ATTEND Thoracic Surgery (Cardiothoracic Vascular Surgery)
DX: Z09 Encounter for follow-up examination after completed treatment for conditions other than malignant neoplasm (principal)

== ENCOUNTER → 2019-03-16 08:55 | Outpatient (CLI) | payer MEDICARE, BC ==
[2019-01-28 15:21] VITALS: BMI 33.3
--- NOTE | 2019-03-16 14:19 | OP ---
PATIENT NAME: GEOVANNY ROSALES MEDICAL RECORD: [id number] :44 LOCATION:[facility] ADMISSION DATE: SURGEON: ROSMERY ROGERS MD DATE OF OPERATION: 03/16/2019 SURGEON: Rosmery Rogers MD PROCEDURE: Ultrasound-guided left thoracentesis. INDICATION: Left pleural effusion. PROCEDURE IN DETAIL: With the patient seated upright with heart rate, blood pressure, and pulse oximetry monitored ultrasound was used to localize the left pleural effusion and a window for aspiration. Chest was sterilely prepped and draped. A 1% Xylocaine was used for local anesthetic and the effusion was localized with a small needle. A 2-mm skin incision was made. The thoracentesis catheter was introduced over the superior surface of the rib and into the pleural fluid with a total 1.5 liters of fluid removed without difficulty. Ultrasound revealed no residual fluid and there were no apparent complications. Chest x-ray is pending. TRANSINT:[id number] Voice Confirmation ID: [id number] DOCUMENT ID: [id number] ROSMERY ROGERS MD at 1419 CC: JACKY BRAGG M.D. [id number] DICTATION DATE: 03/16/[address] IN THEATER ATTENDANT: 03/16/19 1307 [address] [place] [address] [place] [address]
== END | disposition home or self-care (01) ==
LOC: D.US 03-11 10:00 → D.CT 03-11 10:00 → D.US 03-15 13:00
PROVIDERS: ATTEND Thoracic Surgery (Cardiothoracic Vascular Surgery)
DX: J90 Pleural effusion, not elsewhere classified (principal)

== ENCOUNTER → 2019-03-24 09:32 | Outpatient (CLI) | payer MEDICARE, BC ==
[2019-01-28 15:21] VITALS: BMI 33.3
== END | disposition home or self-care (01) ==
LOC: D.RAD 09:32
PROVIDERS: ATTEND Thoracic Surgery (Cardiothoracic Vascular Surgery)
DX: J90 Pleural effusion, not elsewhere classified (principal)

== ENCOUNTER 2019-04-06 09:18 | Outpatient (CLI) | payer MEDICARE, BC ==
[~2019-04-06] VITALS: Ht 177.8 cm; Wt 90.9 kg
--- NOTE | ~2019-04-06 | HEMODYNAMI ---
PATIENT:GEOVANNY ROSALES MEDICAL RECORD: [id number] : 44 LOCATION:[facility] ADMISSION DATE: 04/06/19 Generatedon:04/06/201913:07 Patient name: GEOVANNY ROSALES Patient #: [id number] SSN: : 1940 Date of study: 04/06/2019 Page: Of Hemodynamic Procedure Report Patient Data Patient Demographics Procedure consent was obtained First Name: GEOVANNY Gender: Male Last Name: BOBBY : 1940 Middle Initial: A Age: 78 year(s) Patient #: [id number] Race: Additional ID: [id number] Contact details [address]: [address] [place] [address] State: [place] City: [place] Zip code: [address] Past Medical History Allergies: No known allergies Admission Admission Data Admission Date: 04/06/2019 Admission Time: 9:18 Lab Results Lab Result Date: 04/06/2019 Lab Result Time: 0:00 Biochemistry Name Units Result Min Max BUN mg/dl 26 --(----)-* 7 18 Creatinine mg/dl 2.1 --(----)-* 0.6 1.3 CBC Name Units Result Min Max Hemoglobin g/dl 11.1 *-(----)-- 13.5 17.5 Coagulation Name Units Result Min Max INR units 1.64 --(----)-* 0.85 1.17 PT sec 18.8 --(----)-* 11.6 15 Procedure Procedure Types Cath Procedure Diagnostic Procedure Cardioversion External Procedure Description Procedure Date Procedure Date: 04/06/2019 Procedure Start Time: 12:57 Procedure End Time: 13:06 Procedure Staff Name Function Kamran Wells MD Performing Physician Sara León RT Monitor Kathy Salazar RN Nurse Muna Velázquez RT Scrub Taco Colvin Jr, CRNA Additional personnel Procedure Data Cath Procedure Estimated blood loss: 0 ml Procedure Complications No complications Procedure Medications Medication Administration Route Dosage 0.9% NaCl I.V. 100 ml/hr Oxygen etCO2 Nasal cannula 2 l/min Refer to Anesthesia Notes for Sedation Medications Hemodynamics Rest Pre Cath Intra NCS Post Cath Vital Signs Time Heart Resp SPO2 etCO2 NIBP (mmHg) Rhythm Pain Sedation Rate (ipm) (%) (mmHg) Status Level (bpm) 12:48:15 80 18 98 29.2 147/83(134) A-Fib 0 (11) 10(A) , No pain 12:52:37 88 17 98 39.6 150/87(129) A-Fib 0 (11) 10(A) , No pain 12:56:49 89 17 100 39.6 152/95(141) A-Fib 0 (11) 5(A) , No pain 13:01:07 70 18 98 26.2 116/69(95) NSR 0 (11) 5(A) , No pain 13:05:21 69 16 97 20.2 112/57(85) NSR 0 (11) 10(A) , No pain Medications Time Medication Route Dose Verified Delivered Reason Notes Effective ness by by 12:47:57 0.9% NaCl I.V. 100 Kamran Kathy used for ml/hr Russell Salazar cooler service supervisor 12:48:05 Oxygen etCO2 2 Kamran Kathy used for Nasal l/min Russell Salazar procedure cannula RN 12:48:24 Refer to Kamran Kamran Anesthesia Russell Wells MD Notes for Sedation Medications Procedure Log Time Note 12:24:11 Diagnostic Cath status Elective 12:24:13 Sara León RT(R) sent for patient. Start room use. 12:24:14 Time tracking: Regular hours (M-F 7:00 - 5:00) 12:24:21 Plan of Care:Hemodynamics will remain stable., Cardiac rhythm will remain stable., Comfort level will be maintained., Respiratory function will remain adequate., Patient/ family verbilizes understanding of procedure., Procedure tolerated without complication., Recovers from procedure without complications.. 12:25:16 Patient received from Pre/Post Procedure Room to CCL 1 Alert and oriented. Tansferred to table in Supine position. 12:25:17 Warm blankets applied, and ariana hugger turned on for patient comfort. 12:25:18 Correct patient and procedure confirmed by team. 12:25:20 Signed procedure consent form obtained from patient. 12:25:23 ECG and BP/O2 sat monitors applied to patient. 12:25:48 H&P Date Dictated: 03/17/2019 Within 30 days and on chart., H&P Addendum completed by physician on day of procedure. (MUST COMPLETE FOR ALL OUTPATIENTS). 12:25:50 Pre-procedure instructions explained to patient. 12:25:53 Family in waiting room. 12:25:56 Patient NPO since Midnight. 12:26:05 Patient allergic to No known allergies 12:26:08 Is the patient allergic to Iodine/contrast media? No. 12:26:30 Was the patient premedicated? Yes 12:26:32 Is patient on blood thinner?Yes 12:26:40 ACC The patient was administered the following blood thiners within the last 24 hours: Eliquis 12:27:16 Patient diabetic? Yes. 12:27:18 If diabetic: On Metformin? No 12:46:58 Vital chart was started 12:47:12 Snore? Yes 12:47:14 Sleep apnea? No 12:47:26 Deviated septum? No 12:47:32 Dentures? No ? 12:47:44 IV patent on arrival in left forearm with 0.9% NaCl at [facility]. 12:47:57 0.9% NaCl 100 ml/hr I.V. was administered by Kathy Salazar RN; used for procedure; 12:48:05 Oxygen 2 l/min etCO2 Nasal cannula was administered by Kathy Salazar RN; used for procedure; 12:48:24 Refer to Anesthesia Notes for Sedation Medications was administered by Kamran Wells MD; ; 12:53:05 Lab Result : BUN 26 mg/dl 12:53:05 Lab Result : Creatinine 2.1 mg/dl 12:53:05 Lab Result : Hemoglobin 11.1 g/dl 12:53:06 Lab Result : PT 18.8 sec 12:53:06 Lab Result : INR 1.64 units 12:53:29 Alarms reviewed by Zia Rojo 12:53:30 Sharps counted by scrub and verified by Tomás 12:53:32 Physician paged 12:56:57 Physician arrived 12:56:57 --------ALL STOP TIME OUT------ 12:56:58 Final Timeout: patient, procedure, and site verified with staff and physician. All members of the team are in agreement. 12:57:04 Fire Safety Assessment: A--An alcohol-based skin anteseptic being used preoperatively., C--Open oxygen or nitrous oxide is being used., D--An ESU, laser, or fiber-optic light is being used. 12:57:08 Physical assessment completed. ASA score P 3 - A patient with severe systemic disease as per Kamran Wells MD. 12:57:17 Sedation plan: TIVA Medication:Propofol 12:57:21 Taco Colvin Jr, CRNA present and monitoring patient for TIVA. 12:57:34 Procedure started. 12:57:35 Full Disclosure recording started 12:57:53 Quick Combo opened to sterile field. 12:57:56 ------Cardioversion------ 12:57:57 Quick combo pads placed on patients chest and back. 12:58:07 Defibrillator synced and charged to 200 Joules. 12:58:20 Shock delivered. 12:58:52 Patient cardioverted to sinus rhythm . 12:59:01 Procedure ended.(Physican Out) 12:59:23 Post-procedure physical assessment completed. ASA score P 3 - A patient with severe systemic disease as per Kamran Wells MD. 12:59:29 Post procedure rhythm: sinus rhythm 12:59:38 Estimated blood loss: 0 ml 12:59:49 Post procedure instruction explained to patient.Patient verbalizes understanding. 13:00:02 Procedure Complication : No complications 13:06:06 Vital chart was stopped 13:06:12 See physician's report for complete and final results. 13:06:14 Report given to Pre/Post Procedure Room. 13:06:16 Patient transfered to Pre/Post Procedure Room with Stretcher. 13:06:19 Procedure ended. 13:06:19 Full Disclosure recording stopped 13:06:21 End room use (Document Last) Device Usage Item Manufacture Quantity Catalog Hospital Part Current Minimal Lot# / Name Number Charge Number Stock Stock Dory daon# Code Ambric 1 [id number] Combo Signature Audit [place] Stage Time Signature Unsigned Intra-Procedure 04/06/2019 Muna Velázquez 1:07:25 PM RT(R) Signatures Monitor : Sara León RT Signature : Date : Time : [address] [address]
[2019-04-06] MEDS ORDERED: ELIQUIS5 MG PO (10:58)
[2019-04-06] MEDS ORDERED: AMIODARONE HCL200 MG PO (10:58)
[2019-04-06 11:14] VITALS: BP 157/90; Ht 177.8 cm; Wt 90.9 kg
[2019-04-06 11:27] LABS: BASOPHILS 0.5 % (0-2); EOSINOPHILS 3.1 % (0-7); HEMATOCRIT 35.1 % (42.0-54.0); HEMOGLOBIN 11.1 g/dL (13.5-17.5); IMMATURE GRANULOCYTES 0.2 % (0-5); LYMPHOCYTES 11.2 % (15-50); MCH 29.2 pg (26.0-34.0); MCHC 31.6 g/dL (31.0-37.0); MCV 92.4 fL (80.0-100.0); MEAN PLATELET VOLUME 9.4 fL (7.4-10.4); MONOCYTES 10.8 % (2-11); NEUTROPHILS 74.2 % (40-80); RDW 16.3 % (11.5-14.5); WBC 5.5 10x3/uL (4.8-10.8)
[2019-04-06 11:28] LABS: PLATELET COUNT 251 10x3/uL (130-400)
[2019-04-06 11:35] LABS: INR 1.64 (0.85-1.17); PROTIME 18.8 SECONDS (11.6-15.0)
[2019-04-06 11:38] LABS: ANION GAP 7.5 mmol/L (8-16); CALCIUM 8.5 mg/dL (8.5-10.1); CARBON DIOXIDE 34.3 mmol/L (21.0-32.0); CREATININE - SERUM 2.1 mg/dL (0.6-1.3); POTASSIUM - SERUM 3.8 mmol/L (3.5-5.1)
--- NOTE | 2019-04-06 13:15 | NUR ---
PATIENT ARRIVED TO ROOM 8, PLACED ON CM. PHYSICIAN AT BEDSIDE TO UPDATE FAMILY. WILL CONTINUE TO MONITOR.
--- NOTE | 2019-04-06 13:30 | NUR ---
PATIENT AWAKE, GIVEN CRACKERS AND COLA PER REQUEST. NO N/V. VSS ON ROOM AIR. NO C/O PAIN, NUMBNESS, OR TINGLING. PRESENT AT BEDSIDE.
--- NOTE | 2019-04-06 14:00 | NUR ---
VSS ON ROOM AIR NSR ON CM. NO C/O PAIN, NUMBNESS, OR TINGLING. WRITTEN AND VERBAL EDUCATION REGARDING DISCHARGE INSTRUCTIONS AND MEDICATION COMPLIANCE GIVEN TO PATIENT AND SPOUSE, BOTH VOICE UNDERSTANDING. IV REMOVED.
--- NOTE | 2019-04-06 14:15 | NUR ---
PATIENT TRANSPORTED VIA WHEELCHAIR TO CAR WITH SPOUSE DRIVING, ALL BLEONGINGS WITH PATIENT.
== END 2019-04-06 14:15 | disposition home or self-care (01) ==
LOC: D.CATH 09:18
PROVIDERS: ATTEND Internal Medicine Cardiovascular Disease
DX: I48.91 Unspecified atrial fibrillation (principal); Z01.812 Encounter for preprocedural laboratory examination

== ENCOUNTER → 2019-05-12 09:12 | Outpatient (CLI) | payer MEDICARE, BC ==
[2019-04-06 11:14] VITALS: BMI 28.7
[~2019-05-12 09:12] MED LIST changes: +AMIODARONE HCL200 MG PO; +ELIQUIS5 MG PO
== END | disposition home or self-care (01) ==
LOC: D.LAB 09:12
PROVIDERS: ATTEND Thoracic Surgery (Cardiothoracic Vascular Surgery)
DX: L89.90 Pressure ulcer of unspecified site, unspecified stage (principal)

== ENCOUNTER 2019-07-16 06:10 | Day surgery (SDC) | payer MEDICARE, BC ==
[2019-07-15 09:07] LABS: BASOPHILS 0.3 % (0-2); EOSINOPHILS 2.5 % (0-7); HEMATOCRIT 35.2 % (42.0-54.0); HEMOGLOBIN 11.4 g/dL (13.5-17.5); IMMATURE GRANULOCYTES 0.5 % (0-5); LYMPHOCYTES 8.2 % (15-50); MCH 29.8 pg (26.0-34.0); MCHC 32.4 g/dL (31.0-37.0); MCV 91.9 fL (80.0-100.0); MONOCYTES 12.2 % (2-11); NEUTROPHILS 76.3 % (40-80); PLATELET COUNT 205 10x3/uL (130-400); RBC 3.83 10x6/uL (4.20-6.10); RDW 18.1 % (11.5-14.5); WBC 6.1 10x3/uL (4.8-10.8)
[2019-07-15 09:20] LABS: ANION GAP 8.8 mmol/L (8-16); CALCIUM 8.6 mg/dL (8.5-10.1); CARBON DIOXIDE 29.9 mmol/L (21.0-32.0); CREATININE - SERUM 1.7 mg/dL (0.6-1.3); POTASSIUM - SERUM 4.7 mmol/L (3.5-5.1)
[2019-07-15 11:49] LABS: APTT 33.2 SECONDS (22.8-39.4); INR 1.02 (0.85-1.17); PROTIME 12.9 SECONDS (11.6-15.0)
[~2019-07-16] VITALS: Ht 170.2 cm; Wt 82.1 kg
[~2019-07-16 06:10] MED LIST changes: -ACTOS45 MG PO; +COREG6.25 MG PO; +PIOGLITAZONE15 MG PO
[2019-07-16 07:37] VITALS: BP 167/78; Ht 170.2 cm; Wt 82.1 kg
[2019-07-16] MEDS ORDERED: HYDROCODON-ACE1 EA10 PO (09:42)
--- NOTE | 2019-07-16 10:08 | NUR ---
MEETS ANESTHESIA DISCHARGE CRITERIA
--- NOTE | 2019-07-16 15:10 | NUR ---
1355 STILL AWAITING VOID. [id number] (PO AND IV).BLADDER SCAN REVEALS 160CC RESIDUAL. LUNGS WITH BIBASILAR CRACKLES. SAT=94. RESP EVEN AND UNLABORED. DR. MARTINES NOTIFIED. HE ORDERS TO MONITOR FOR AWHILE LONGER
--- NOTE | 2019-07-16 18:42 | NUR ---
1819 UNABLE TO VOID. BLADDER SCAN [address] MARTINES TO 16 FR HU[address]ARD [address]ACED, ONSTRUCTIONS GIVEN. RETURN OF 500 CC CLEAR YELLOW URINE
--- NOTE | 2019-07-22 13:49 | OP ---
PATIENT NAME: GEOVANNY ROSALES MEDICAL RECORD: [id number] :44 LOCATION:[facility] ADMISSION DATE: SURGEON: DOMINICK MARTINES MD DATE OF OPERATION: 07/16/2019 PREOPERATIVE DIAGNOSES: 1. Right inguinal hernia. 2. Atrial fibrillation. 3. Coronary artery disease. 4. Diabetes mellitus. 5. Hypertension. 6. Hyperlipidemia. POSTOPERATIVE DIAGNOSES: 1. Right inguinal hernia. 2. Atrial fibrillation. 3. Coronary artery disease. 4. Diabetes mellitus. 5. Hypertension. 6. Hyperlipidemia. PROCEDURE: Right inguinal hernia repair with medium PHS mesh. SURGEON: Dominick Martines MD REPORT OF PROCEDURE: The patient's right groin was prepped and draped in sterile fashion. An oblique incision was made above the inguinal ligament. Electrocautery was used to dissect through the subcutaneous tissues down to the external oblique fascia. This fascia was opened up to the external ring using electrocautery. A [place] was then placed around the spermatic cord. There was noted to be a large indirect hernia defect, which contained some small bowel. We dissected this hernia sac from the spermatic cord and eventually high ligated this with a 3-0 silk. The remainder was pushed back into the abdominal cavity. Once inside, we were able to open up the inguinal floor and open the preperitoneal space of Retzius in all directions. A medium PHS mesh was then inserted and sutured down on all sides using multiple interrupted 0 Vicryl. The wound was then irrigated out with normal saline and infused with a total of 10 mL of 0.25% Marcaine with epinephrine. The external oblique fascia was closed with running 2-0 Vicryl, Edith's was closed with interrupted 3-0 Vicryl, and the skin was closed with running subcutaneous 5-0 Monocryl. COMPLICATIONS: None. CONDITION: Stable. ANESTHESIA: General endotracheal and local. BLOOD LOSS: Minimal. TRANSINT:[id number] Voice Confirmation ID: [id number] DOCUMENT ID: [id number] OPERATIVE REPORT [id number] BOBBYGEOVANNY Denise DOMINICK MARTINES MD at 1349 CC: RACHEL RAMIREZ [id number] DICTATION DATE: 07/16/19 0946 SYSTEMS SOFTWARE MANAGER: 07/16/19 1026 [facility] 07/16/19 [facility] [address] [place] [address]
== END 2019-07-16 18:35 | disposition home or self-care (01) ==
LOC: D.OPS 06:10 → D.PAN 08:15 → D.OPS 18:35
PROVIDERS: Anesthesiology; ATTEND Surgery
DX: K40.90 Unilateral inguinal hernia, without obstruction or gangrene, not specified as recurrent (principal); I48.91 Unspecified atrial fibrillation; I25.10 Atherosclerotic heart disease of native coronary artery without angina pectoris; E11.9 Type 2 diabetes mellitus without complications; I10 Essential (primary) hypertension; E78.5 Hyperlipidemia, unspecified; Z01.812 Encounter for preprocedural laboratory examination

== ENCOUNTER → 2020-12-22 12:56 | Outpatient (CLI) | payer MEDICARE, BC ==
[2020-09-18 14:10] VITALS: BMI 26.6
[~2020-12-22 12:56] MED LIST changes: +HYDROCODON-ACE1 EA10 PO; +LEVOFLOXACIN500 MG PO; +TORSEMIDE20 MG PO
== END | disposition home or self-care (01) ==
LOC: D.LAB 12:56
PROVIDERS: ATTEND Internal Medicine Pulmonary Disease
DX: Z11.52 Encounter for screening for COVID-19 (principal)

== ENCOUNTER → 2020-12-25 14:30 | Outpatient (CLI) | payer MEDICARE, BC ==
[2020-09-18 14:10] VITALS: BMI 26.6
== END | disposition home or self-care (01) ==
LOC: D.RT 14:30
PROVIDERS: ATTEND Internal Medicine Pulmonary Disease
DX: R06.09 Other forms of dyspnea (principal)